=== PATIENT | male | born 1945 | race Caucasian/White ===

== ENCOUNTER 2020-04-23 07:37 | Outpatient (CLI) | payer MEDICARE, SELFPAY ==
--- NOTE | 2020-04-23 07:56 | ECHO_ITS ---
Patient Info Name: Chepe Mark Age: 74 years : 1945 Gender: Male Ht: 72 in Wt: 227 lbs BSA: 2.31 m2 HR: 55 bpm BP: 212 / 89 mmHg Technical Quality: Good Exam Date: 04/23/2020 8:11 AM Exam Location: [facility] Patient Status: Outpatient Admit Date: 04/23/2020 Staff Ordering Physician: Lucien Perez DO Tape Transferrer: Kenny Calle RDCS, RT Attending Provider: Lucien Perez DO Referring Physician: Ana KENNEDY; Exam Type: CA echo doppler color flow Study Info Indications I10 - Essential (primary) hypertension Complete two-dimensional, color flow and Doppler transthoracic echocardiogram is performed. Summary 1. Left ventricular chamber dimension is normal. 2. Left ventricular systolic function is normal, estimated at 60-65%. 3. There is moderately increased left ventricular wall thickness. 4. The left ventricular diastolic function is abnormal. 5. E/e' 15 is elevated. 6. Global longitudinal strain is normal at -17.4%. 7. Left atrial chamber dimension is mildly enlarged. 8. There is moderate aortic valve sclerosis. 9. The mitral valve has severely calcified leaflets and mildly calcified annulus. 10. There is mild mitral valve regurgitation. 11. There is trace tricuspid valve regurgitation. 12. There is trace pulmonic regurgitation. 13. Dilated inferior vena cava with >50% collapse upon inspiration consistent with elevated right atrial pressure, 10 mmHg. Left Ventricle E/e' 15 is elevated. Global longitudinal strain is normal at -17.4%. Left ventricular chamber dimension is normal. Left ventricular systolic function is normal, estimated at 60-65%. There is moderately increased left ventricular wall thickness. The left ventricular diastolic function is abnormal. Right Ventricle Right ventricular chamber dimension is normal. Right ventricular systolic function is normal. Left Atria Left atrial chamber dimension is mildly enlarged. Right Atria Right atrial chamber dimension is normal. Aortic Valve The aortic valve is trileaflet. There is moderate aortic valve sclerosis. There is no aortic valve stenosis. There is no aortic valve regurgitation. Pulmonic Valve There is trace pulmonic regurgitation. Mitral Valve The mitral valve has severely calcified leaflets and mildly calcified annulus. There is no mitral valve stenosis. There is mild mitral valve regurgitation. Tricuspid Valve RVSP is not calculated due to an inadequate TR jet. There is trace tricuspid valve regurgitation. Pericardium/Pleural There is no pericardial effusion. Inferior Vena Cava Dilated inferior vena cava with >50% collapse upon inspiration consistent with elevated right atrial pressure, 10 mmHg. Aorta The aortic root size at the sinus of Valsalva is normal. Left Ventricular Outflow Tract Name Value Normal LVOT 2D LVOT Diameter 2.1 cm LVOT Doppler LVOT Peak Gradient 4 mmHg LVOT Mean Gradient 2 mmHg LVOT VTI 28 cm LVOT VTI/AV VTI Ratio 0.6
== END 2020-04-23 07:38 | disposition home or self-care (01) ==
LOC: ANHCARD 07:39
PROVIDERS: PCP Internal Medicine; Visit Provider Internal Medicine
DX: I10 Essential (primary) hypertension (principal); I35.8 Other nonrheumatic aortic valve disorders; I34.0 Nonrheumatic mitral (valve) insufficiency
CPT/HCPCS: 93306

== ENCOUNTER 2020-05-28 12:00 | Outpatient (CLI) | payer MEDICARE, SELFPAY ==
--- NOTE | ~2020-05-28 | XR_ITS ---
EXAMINATION: XR chest 2V EXAM DATE: 05/28/2020 12:11 INDICATION: Dyspnea. TECHNIQUE: Frontal and lateral projections of the chest obtained and reviewed. There is no prior lucero dy for comparison. FINDINGS: The lungs are clear. There are no pleural effusions. The cardiomediastinal silhouette is upper limits of normal in size. There is no pneumothorax suspected. The bones and soft tissues are unremarkable. IMPRESSION: No acute cardiopulmonary findings. Reviewed, dictated and finalized at location A.
--- NOTE | 2020-06-02 23:34 | WPDPFTINT ---
PFT Interpretation PFT Interpretation: DOS: 05/28/2020 REQUESTING: Dr. Perez REASON FOR TESTING: Dyspnea PULMONARY FUNCTION TESTS Results are reproducible. Spirometry: FEV1 101%, FVC 81%, FEV1% normal, no change with bronchodilator. Lung volumes: TLC 92%, RV 89%, Both are normal. Airway resistance increased 206%. Diffusion: DLCO 87%, normal. Flow volume loop: Normal. IMPRESSION: Normal study with mild increase in airway resistance. Shasha Rivera MD
== END 2020-05-28 12:01 | disposition home or self-care (01) ==
PROVIDERS: PCP Internal Medicine; Visit Provider Internal Medicine
DX: R06.00 Dyspnea, unspecified (principal)
CPT/HCPCS: 71046; 94060; 94726; 94729

== ENCOUNTER 2020-10-05 00:34 | Outpatient (CLI) | payer MEDICARE, SELFPAY ==
[2020-10-05 19:14] LABS: SARS-CoV-2 RNA PCR Positive
== END 2020-10-05 00:35 | disposition home or self-care (01) ==
LOC: ANHCOVIDDT 00:34
PROVIDERS: PCP Internal Medicine; Visit Provider Internal Medicine Gastroenterology
DX: U07.1 COVID-19 (principal)
CPT/HCPCS: 87635; C9803; U0003

== ENCOUNTER 2021-01-08 01:54 | Day surgery (SDC) | payer MEDICARE, SELFPAY ==
[2020-09-30 14:49] VITALS: BMI 29.9
--- NOTE | 2020-10-07 09:00 | SUR.PREOP ---
0900 contacted patient vis phone gave patient his Covid test results which were positive. Referred patient to call his primary care doctor and to follow up with his [facility] for further instructions. Patient denies and signs or symptoms of Covid. Instructed patine to reach out to Dr. Sosa's office for re-scheduling of procedure. Patient voiced understanding.
[2020-12-09 13:41] VITALS: BMI 29.9
--- NOTE | 2020-12-09 13:58 | PC.NURSE ---
Pt. COVID + 10/05/2020, results in [facility] and copy on chart. Pt. was asymptomatic. Fabiana Phillips RN 12/09/20 [phone]
--- NOTE | 2020-12-31 08:13 | PC.NURSE ---
Patient denies any changes in health history since last interview. Updated on times and new visitor policies.
[2021-01-08] MEDS: LACTATED RINGERS 1,000 ML 150 ML IV CONT (08:30)
[2021-01-08 08:33] VITALS: BP 207/77; PULSE 60; RESP 14; TEMP 36.7; O2SAT 97; BMI 30.2
[2021-01-08 08:38] LABS: Glucose Point of Care 123 (65-105)
--- NOTE | 2021-01-08 08:38 | SUR.PHASEII ---
Pt blood pressure elevated 207/77. Re-check 218/75. Dr. Knight anesthesiologist made aware. No new orders at this time.
[2021-01-08 08:39] VITALS: BP 218/75
--- NOTE | 2021-01-08 08:51 | PM.HPGS ---
History of Present Illness History of Present Illness Consent: Risks, benefits, and alternatives have been discussed and questions answered. Patient agrees to proceed with procedure. Chief complaint: hx of colon polyps Narrative: Chepe Mark is a 75 year old male referred for colon cancer screening. He had polyps removed about 6 years ago Review of Systems Review of Systems: All systems reviewed & are unremarkable except as noted in HPI and below PMFSH Past Medical History Medical History H/O: HTN (hypertension) Family History Family History Father Family history of Alzheimer's disease Other Cerebrovascular accident Family history of arthritis Hypertension Social History Social History Smoking status: Never smoker Second hand tobacco smoke exposure: No Alcohol intake: current Drinks per week: 2 Alcohol use details: rarely Substance use: never Substance use type: does not use Living arrangements: with family Gender identity (if verbalized by the patient): Male Spiritual care concerns: No Meds Home Medications and Allergies Home Medications Medication Instructions Recorded Confirmed Type terazosin 2 mg capsule 2 mg PO DAILY #90 cap 07/09/20 11/11/20 Rx carvedilol 25 mg tablet 25 mg PO Q12H #180 tablet 07/19/20 11/11/20 Rx blood-glucose meter #1 ea 09/12/20 11/11/20 Rx glipizide 5 mg tablet 5 mg PO DAILY 30 Days #30 tablet 09/12/20 11/11/20 Rx lancets 33 gauge #100 ea 09/12/20 11/11/20 Rx metformin 500 mg tablet 500 mg PO DAILY 30 Days #30 tablet 09/12/20 11/11/20 Rx valsartan 320 1 tablet PO DAILY #90 tablet 12/09/20 12/09/20 Rx mg-hydrochlorothiazide 25 mg tablet blood sugar diagnostic #200 ea 12/10/20 Rx lisinopril 40 mg tablet 40 mg PO DAILY #90 tablet 12/13/20 12/31/20 Rx simvastatin 40 mg tablet 40 mg PO DAILY #90 tablet 12/16/20 12/31/20 Rx Allergies Allergy/AdvReac Type Severity Reaction Status Date / Time No Known Allergies Allergy Mild Verified 01/08/21 08:08 Vital Signs Vital Signs - 24 hr 01/08/21 08:33 01/08/21 08:39 Temperature 36.7 C Pulse Rate 60 Respiratory Rate 14 Blood Pressure 207/77 H 218/75 H Pulse Oximetry 97 Exam Resp: Auscultation: clear to auscultation bilaterally Cardio: Rate: regular rate Rhythm: regular rhythm GI: GI Palp: Yes Soft to palpation and No Tenderness to palpation present (GI) Assessment and Plan Assessment and plan (1) Colon cancer screening: Code(s): Z12.11 - Encounter for screening for malignant neoplasm of colon Status: Acute Assessment and Plan: Colonoscopy with possible biopsy or polypectomy or cautery or injection of substances.
--- NOTE | 2021-01-08 08:53 | WPDANESEPPF ---
Anes - Initial Pre Proc Eval Procedure: Operation Date: 01/08/21 09:30 Proposed Procedures p Screening Colonoscopy - Mateo Nesbitt MD Date/Time: 01/08/21 08:53 Surgeon: Mateo Nesbitt MD Pre Op Diagnosis: hx of colon polyps Patient Data Age: 75 Gender: M Height: 6 ft Weight: 101 kg Last Vital Signs Temp 98.1 F 01/08/21 08:33 Pulse 60 01/08/21 08:33 Resp 14 01/08/21 08:33 BP 218/75 H 01/08/21 08:39 Pulse Ox 97 01/08/21 08:33 Allergies Allergy/AdvReac Type Severity Reaction Status Date / Time No Known Allergies Allergy Mild Verified 01/08/21 08:08 Home Medications Medication Instructions Recorded Confirmed Type terazosin 2 mg capsule 2 mg PO DAILY #90 cap 07/09/20 11/11/20 Rx carvedilol 25 mg tablet 25 mg PO Q12H #180 tablet 07/19/20 11/11/20 Rx blood-glucose meter #1 ea 09/12/20 11/11/20 Rx glipizide 5 mg tablet 5 mg PO DAILY 30 Days #30 tablet 09/12/20 11/11/20 Rx lancets 33 gauge #100 ea 09/12/20 11/11/20 Rx metformin 500 mg tablet 500 mg PO DAILY 30 Days #30 tablet 09/12/20 11/11/20 Rx valsartan 320 1 tablet PO DAILY #90 tablet 12/09/20 12/09/20 Rx mg-hydrochlorothiazide 25 mg tablet blood sugar diagnostic #200 ea 12/10/20 Rx lisinopril 40 mg tablet 40 mg PO DAILY #90 tablet 12/13/20 12/31/20 Rx simvastatin 40 mg tablet 40 mg PO DAILY #90 tablet 12/16/20 12/31/20 Rx Laboratory Tests 01/08/21 08:25 POC Capillary Glucose 123 mg/dl H mg/dl (65-105) Patient hx anesthesia problems: none Family hx anesthesia problems: none PMFSH Past Medical History Medical History (Updated 01/08/21 @ 08:53 by Fausto Knight MD) Essential (primary) hypertension H/O: HTN (hypertension) Pure hypercholesterolemia Uncontrolled type 2 diabetes mellitus Family History Family History Father Family history of Alzheimer's disease Other Cerebrovascular accident Family history of arthritis Hypertension Social History Social History Smoking status: Never smoker Second hand tobacco smoke exposure: No Alcohol intake: current Drinks per week: 2 Alcohol use details: rarely Substance use: never Substance use type: does not use Living arrangements: with family Gender identity (if verbalized by the patient): Male Spiritual care concerns: No Anes - Eval Final PreProcedure Day of Procedure 01/08/21 08:53 Patient weight: obese Heart: regular rate and rhythm Lungs: clear to auscultation Airway: Mallampati scale class III Neurological: alert and oriented Last oral intake: >/= 8 hours ASA classification: III Emergent: no Anesthetic plan: proceed Anesthesia type and monitoring: general GIVS and standard monitoring Informed Consent: The patient's anesthetic plan and its attendant risks and benefits were discussed with the patient/family/POA. Questions were solicited and answers provided to the satisfaction of the patient/family/POA.
[2021-01-08 09:42] VITALS: BP 151/73; PULSE 50; RESP 16; O2SAT 98
[2021-01-08 09:52] VITALS: BP 176/100; PULSE 49; RESP 18; O2SAT 97
[2021-01-08 10:02] VITALS: BP 177/88; PULSE 49; RESP 20; O2SAT 98
== END 2021-01-08 10:21 | disposition home or self-care (01) ==
PROVIDERS: PCP Internal Medicine; Visit Provider Internal Medicine Gastroenterology
PROC: 0DJD8ZZ Inspection of Lower Intestinal Tract, Via Natural or Artificial Opening Endoscopic (ICD-10-PCS; CPT 45378; principal; 2021-01-08 09:30)
DX: Z12.11 Encounter for screening for malignant neoplasm of colon (principal); K63.5 Polyp of colon; I10 Essential (primary) hypertension; E78.00 Pure hypercholesterolemia, unspecified; E11.9 Type 2 diabetes mellitus without complications; Z79.84 Long term (current) use of oral hypoglycemic drugs; E66.9 Obesity, unspecified; Z68.30 Body mass index [BMI] 30.0-30.9, adult
CPT/HCPCS: 45380; 82948; 88305; J2001; J2704; J7120

== ENCOUNTER 2021-01-23 13:00 | Outpatient (RCR) | payer MEDICARE, SELFPAY ==
[2020-11-19 11:06] VITALS: BMI 30.9
[2020-11-19 11:07] VITALS: BMI 30.9
== END 2021-01-24 11:32 | disposition home or self-care (01) ==
LOC: ANHDMC 13:00
PROVIDERS: PCP Internal Medicine; Visit Provider Internal Medicine Endocrinology, Diabetes & Metabolism
DX: E11.65 Type 2 diabetes mellitus with hyperglycemia (principal); Z71.3 Dietary counseling and surveillance; Z71.89 Other specified counseling
CPT/HCPCS: 97802; G0108

== ENCOUNTER 2022-08-10 02:38 | Outpatient (CLI) | payer MEDICARE, SELFPAY ==
[2022-07-31 13:01] VITALS: BMI 29.9
--- NOTE | 2022-07-31 13:02 | PC.NURSE ---
Pre Radiology instructions Report to the Outpatient Waiting Room, entrance under the green pavilion located off [facility], at time __7:30AM on date ___08/10/22____. Procedure Time: __9:30AM . YOU MAY BE MONITORED AT HOSPITAL FOR UP TO 4 HOURS AFTER YOUR PROCEDURE. One visitor will be allowed to accompany the patient into the hospital. The visitor will be instructed to remain with patient at all times or leave the building due to restrictions. We will allow the visitor to come back to the postoperative area when patient is ready. NO children visitors allowed at this time. You and your visitor will be asked to self-screen and do not enter if you have any COVID symptoms. A mask is required within the hospital. Patients are to have no food or drink 6 hours prior to procedure time Driving will be restricted after the procedure, you must have a person to drive you home. Labs will be drawn in preop area and once reviewed, you will be taken to radiology area for procedure. When the procedure is completed, you will be taken to outpatient where you will be monitored for several hours. You may have one visitor in this area. Other than holding anti-coagulants, patient may take other medication(s) as scheduled. Prior to your appointment date patients are instructed to hold anti-coagulants after discussing with ordering provider to stop. If unable to discontinue anti-coagulants please notify radiologist. No aspirin or warfarin (Coumadin) for 7 days prior to the procedure. No clopidogrel (Plavix), ticagrelor (Brilinta), prasugrel (Effient) or dabigatran (Pradaxa) for 5 days prior to the procedure. No rivaroxaban (Xarelto), apixaban (Eliquis), dipyridamole (Aggrenox or Persantine) or cilostazol (Pletal) for 2 days prior to the procedure. Medications to discontinue per physician: HOLD METFORMIN AM OF PROCEDURE Date to take last dose: ____08/09/22 Please leave all valuables, including medications, at home the day of procedure. The hospital will not accept responsibility for valuables. Wear comfortable, loose fitting clothing. Follow any additional instructions given to you from ordering provider. Telephone instructions given to _PATIENT and asked if any additional questions and then verbalized understanding. Patient advised to call scheduling provider office or registration scheduling [phone] if any additional questions.
[2022-08-10 07:25] VITALS: BP 166/76; PULSE 56; RESP 16; TEMP 36.4; O2SAT 98; BMI 29.1
[2022-08-10] MEDS: SODIUM CHLORIDE 0.9% IV 1,000 ML 30 ML IV CONT (07:55)
[2022-08-10 08:07] LABS: Mean Platelet Volume 11.9 fl (7.4-10.4); Platelet Count Result 227 k/mm3 (150-375)
[2022-08-10 08:09] LABS: Glucose Point of Care 202 mg/dl (65-105)
[2022-08-10 08:29] LABS: INR 0.9; Prothrombin Time 12.2 Seconds (11.1-14.7)
--- NOTE | 2022-08-10 09:25 | SUR.PREOP ---
0907- Call to ultrasound and spoke with staff notifying patient is ready in pre-op for procedure with labs resulted normal.
--- NOTE | 2022-08-10 09:45 | SUR.PREOP ---
0945- Notified patient of delay to procedure start time- patient verbalized understanding.
--- NOTE | 2022-08-10 10:22 | SUR.PHASEII ---
1015 - procedure cancelled. iv discontinued. family called for pt pickup.
== END 2022-08-10 10:33 | disposition home or self-care (01) ==
PROVIDERS: PCP Internal Medicine; Referring Provider Internal Medicine Nephrology; Visit Provider Radiology Diagnostic Radiology
PROC: (CPT 76942; principal; 2022-08-10 09:30)
DX: R80.8 Other proteinuria (principal)
CPT/HCPCS: 36415; 82948; 85049; 85610; J7030

== ENCOUNTER 2022-10-08 07:42 | Outpatient (CLI) | payer MEDICARE, SELFPAY ==
--- NOTE | ~2022-10-08 | CT_ITS ---
EXAMINATION: CTA abdomen DATE: 10/08/2022 18:49 CARPENTRY FOREMAN INDICATION: Hypertension TECHNIQUE: Computed tomographic angiography (CTA) of the abdomen was performed without and with 100 m L Omnipaque-350 intravenous contrast. The dose-length product was 1093.69 mGy-cm. Maximum intensity p rojection 3D-reconstructions of the aorta and other arteries were constructed by the technologist on a separate workstation. Automated exposure control and iterative reconstruction technique were employ ed. COMPARISON: None. FINDINGS: Small pleural effusions, right greater than left. There is dependent atelectasis. There is an 8 mm right lower lobe nodule. There is a 1 cm right renal cyst. There are additional subcentimeter hypodense lesions of the right kidney, too small to characterize. There is a 3 cm right adrenal myel olipoma. Fatty infiltration of the liver. There are calcified granulomas of the liver and spleen. The pancreas, left adrenal gland and left kidney are unremarkable. No evidence for aortic aneurysm or dissection. The celiac axis, SMA and KRISH are patent. There is mild atherosclerosis of the origin of the renal arteries without significant narrowing. There is a right extrarenal pelvis. No free air or free fluid. Nonobstructive bowel pattern. No lymphadenopathy. IMPRESSION: 1. Small pleural effusions. 2: Right lower lobe nodule measuring 8 mm. Recommend follow-up low dose CT chest in 3 months. 3: Right adrenal myelolipoma measuring 3 cm. 4: Hepatic steatosis. Reviewed, dictated and finalized at location A. ENTRY FOREMAN IMPRESSION: 1. Small pleural effusions. 2: Right lower lobe nodule measuring 8 mm. Recommend follow-up low dose CT ches t in 3 months. 3: Right adrenal myelolipoma measuring 3 cm. 4: Hepatic steatosis.
[2022-10-08 08:24] LABS: Estimated Glomerular Filt Rate 59
== END 2022-10-08 07:43 | disposition home or self-care (01) ==
PROVIDERS: PCP Internal Medicine; Visit Provider Internal Medicine Nephrology
DX: I10 Essential (primary) hypertension (principal); E78.5 Hyperlipidemia, unspecified; R94.4 Abnormal results of kidney function studies; J90 Pleural effusion, not elsewhere classified; R91.1 Solitary pulmonary nodule; D17.5 Benign lipomatous neoplasm of intra-abdominal organs; K76.0 Fatty (change of) liver, not elsewhere classified
CPT/HCPCS: 74175; Q9967

== ENCOUNTER 2022-12-04 07:41 | Inpatient (IN) | payer MEDICARE, SELFPAY ==
[2022-12-04] VITALS (31 sets, daily range): BP systolic 160–205; BP diastolic 58–84; PULSE 56–74; RESP 12–21; TEMP 36.2–36.5; O2SAT 90–98; BMI 31.1
--- NOTE | ~2022-12-04 | US_ITS ---
EXAMINATION: US venous doppler [facility] DATE: 12/04/2022 15:23 INDICATION: Shortness of breath. Lower limb swelling. TECHNIQUE: Grayscale ultrasound images without and with compression and Doppler ultrasound images of the bilateral lower extremity veins were obtained. COMPARISON: None. FINDINGS: The visualized portions of right common femoral vein, profunda (deep) femoral vein, femoral vein, pop liteal vein, posterior tibial veins, peroneal veins, gastrocnemius vein and greater saphenous vein ou tflow are patent. The visualized portions of left common femoral vein, profunda femoral vein, femoral vein, popliteal v ein, posterior tibial veins, peroneal veins, gastrocnemius vein and greater saphenous vein outflow ar e patent. IMPRESSION: 1. No deep venous thrombosis in either lower limb. Reviewed, dictated and finalized at location A. OR ANALYSIS SPECIALIST
--- NOTE | ~2022-12-04 | XR_ITS ---
EXAMINATION: XR chest 2V DATE: 12/04/2022 11:11 INDICATION: Shortness of breath TECHNIQUE: PA and lateral views of the chest are obtained. COMPARISON: 05/28/2020 FINDINGS: There are small pleural effusions. There are minimal airspace opacities of the lung bases. No pneumothorax is identified. The cardiomediastinal silhouette is normal. There is mild thoracic spo ndylosis. IMPRESSION: 1. Small pleural effusions with minimal bibasilar airspace opacities, consistent with atelectasis jose e matilda pneumonia. Reviewed, dictated and finalized at location B. AL GIVING MANAGER IMPRESSION: 1. Small pleural effusions with minimal bibasilar airspace opacities, consisten t with atelectasis versus pneumonia.
--- NOTE | ~2022-12-04 | XR_ITS ---
Clinical Indication: Pneumonia PA and lateral views of the chest: Comparison: 12/04/2022 Findings: The lungs are clear, without evidence of focal consolidation or pleural effusion. Cardiome diastinal silhouette is within normal limits. Bones and soft tissues are unremarkable. Impression: Normal chest. Reviewed, dictated and finalized at [facility]. PAINTER HELPER Impression: Normal chest.
--- NOTE | 2022-12-04 09:20 | ECG_ITS ---
Measurements Intervals [place] Rate: 59 P: -10 KS: 233 QRS: 29 QRSD: 98 T: 56 QT: 430 QTc: 428 Interpretive Statements SINUS BRADYCARDIA WITH FIRST DEGREE AV BLOCK BORDERLINE ECG NO PREVIOUS ECG AVAILABLE FOR COMPARISON Electronically Signed On 12-04-2022 14:59:16 [employer]NER by Durga Fernandes M.D.
--- NOTE | 2022-12-04 09:27 | ED.SOB ---
HPI - SOB/Dyspnea General Chief Complaint: Upper Respiratory Infection Stated Complaint: sob, cough Time Seen by Provider: 12/04/22 09:01 History of Present Illness HPI Narrative: 77-year-old male with a history of type 2 diabetes, hypertension, hypercholesterolemia reports for shortness of breath x2 days. Patient reports mild cough, inability to take a full deep breath. States his symptoms are worse when he lays flat, particularly at night. Patient was started on amlodipine a couple weeks ago per patient, which has since helped his blood pressure, but he states he noticed swelling in his bilateral lower extremities when he initiated the medication. Patient states he had pneumonia years ago and this is how he felt. He denies fever, sore throat, nasal congestion, chills, night sweats. Denies COPD, heart disease, asthma. Of note, patient states he did not take his valsartan/hydrochlorothiazide and carvedilol this morning, only his amlodipine. He does not wear O2 at home. Related Data Allergies Allergy/AdvReac Type Severity Reaction Status Date / Time No Known Allergies Allergy Mild Verified 11/11/22 08:57 Review of Systems Review of Systems: CONSTITUTIONAL: Denies fever, chills EYES: Denies visual changes, redness, or discharge. ENT: Denies rhinorrhea, congestion, sore throat, or otalgia. CARDIOVASCULAR: Denies chest pain, palpitations. Reports lower leg edema bilaterally. RESPIRATORY: Reports cough and dyspnea. GASTROINTESTINAL: Denies abdominal pain, nausea, vomiting, or diarrhea. GENITOURINARY: Denies dysuria or hematuria. SKIN: Denies rash or itching. MUSCULOSKELETAL: Denies back pain, joint pain, or myalgia. NEUROLOGIC: Denies headache, numbness, dizziness, or weakness. PSYCHIATRIC: Denies anxiety or depression. [facility] Past Medical History Medical History (Updated 12/04/22 @ 14:30 by Becky Feliciano PA-C) Essential (primary) hypertension Hyperlipidemia Monoclonal gammopathy of undetermined significance Followed by specialist at [facility]. Primary osteoarthritis of left knee Type 2 diabetes mellitus Surgical History Surgical History No pertinent past surgical history Family History Family History Father Family history of Alzheimer's disease Other Cerebrovascular accident Family history of arthritis Hypertension Social History Social History (Updated 12/04/22 @ 14:20 by Becky Feliciano PA-C) Social History: Surrogate medical decision maker: Hansa Mark, spouse. Code status: Full code. Smoking status: Never smoker Second hand tobacco smoke exposure: No Alcohol intake: current Drinks per week: 2 Alcohol use details: Social alcohol use in moderation. Substance use: never Lack of Transportation: No Lack of Food: Never True Current Housing: I Have Housing Concerned About Future Housing: No Difficulty Paying Gas/Electric Bills: No Difficulty Paying for Meds: No Currently Unemployed: No Education: Trade/Vocational Certificate Difficulty w/ Childcare or Family Care: No Additional living arrangements comments: Lives with spouse in [place]. 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 Spiritual care concerns: No Exam Narrative: GENERAL: Well-appearing, well-nourished, and in no acute distress. HEAD: Normocephalic, atraumatic. EYES: PERRLA and EOMI. ENT: Nares clear, no rhinorrhea or epistaxis. Mucous membranes moist. Oropharynx without tonsillar hypertrophy exudate or other lesions. Bilateral TMs pearly curry nonbulging NECK: Supple. No adenopathy or masses. CHEST: Clear to auscultation. No respiratory distress. No wheezes rales or rhonchi. Diminished breath sounds throughout. HEART: Regular rate and rhythm. No murmur heard. Normal peripheral pulses. ABDOMEN: Soft, nontender, normal active bowel so
[2022-12-04 09:43] LABS: Basophils Percent Auto 0.4 % (0.2-1.2); Eosinophils Absolute Auto 0.1 K/mm3 (0-0.3); Eosinophils Percent Auto 1.3 % (0-4.4); Hematocrit 37.9 % (42.0-52.0); Hemoglobin 12.7 g/dL (14.0-18.0); Immature Granulocyte Absolute 0.02 K/mm3 (0.00-0.031); Immature Granulocyte Percent A 0.3 % (0-0.5); Lymphocytes Absolute Auto 1.59 K/mm3 (0.9-3.2); Lymphocytes Percent Auto 21.4 % (18.3-44.2); Mean Corpuscular HGB Conc 33.5 g/dl (32-36); Mean Corpuscular Hemoglobin 31.8 pg (26-34); Mean Corpuscular Volume 94.8 fl (80-100); Mean Platelet Volume 10.4 fl (7.4-10.4); Monocytes Absolute Auto 0.5 K/mm3 (0.1-0.6); Neutrophils Absolute Auto 5.2 K/mm3 (1.3-6.7); Neutrophils Percent Auto 69.6 % (45.5-73.1); Platelet Count Result 225 k/mm3 (150-375); Red Cell Distribution Width 12.5 % (11.5-14.5); White Blood Count 7.4 K/mm3 (4.5-10.0)
[2022-12-04] MEDS: ALBUTEROL SULFATE NEB 2.5 MG/3 ML INH INHALATION (09:50)
[2022-12-04] MEDS: IPRATROPIUM BR 0.02% INH SOLN 0.5 MG/2.5 ML VIAL INHALATION (09:50)
[2022-12-04 09:51] LABS: Appearance Urine Clear (Clear); Bilirubin Urine Negative (Negative); Blood Urine Negative (Negative); Color Urine Yellow (Yellow); Glucose Urine UA Negative (Negative); Ketones Urine Trace mg/dL (Negative); Leukocyte Esterase Ur Negative LEU/UL (Negative); Nitrate Urine Negative (Negative); Protein Urine 2+ mg/dL (Negative); Urobilinogen Urine 0.2 mg/dL (<2.0); pH Urine 5.5 (5.0-9.0)
[2022-12-04 09:55] LABS: Alanine Aminotransferase 21 U/L (6-50); Albumin Level 4.7 g/dL (3.5-5.1); Alkaline Phosphatase 66 U/L (38-126); Anion Gap 6 mmol/L (8-16); Aspartate Amino Transferase 19 U/L (17-59); Bilirubin,Total 0.8 mg/dL (0.2-1.3); Blood Urea Nitrogen 20 mg/dL (9-20); Calcium 8.8 mg/dL (8.4-10.2); Carbon Dioxide 26 mmol/L (22-30); Chloride 95 mmol/L (98-107); Estimated CRCL calculation 69 ml/min; Estimated Glomerular Filt Rate > 60; Glucose 151 mg/dL (65-110); Magnesium 2.1 mg/dL (1.6-2.3); Potassium 4.1 mmol/L (3.4-5.0); Sodium 127 mmol/L (137-145)
[2022-12-04 10:06] LABS: RBC Urine 0-2 /hpf (0-2); WBC Urine 0-3 /hpf
[2022-12-04 10:07] LABS: NT Pro B Type Natriuretic Pept 1170 pg/mL (19.9-100); Troponin I < 0.012 ng/mL (0.000-0.034)
[2022-12-04 10:18] LABS: Influenza A QL RT-PCR Negative (Negative); Influenza B QL RT-PCR Negative (Negative); SARS-CoV-2 RNA PCR Negative
[2022-12-04 10:24] LABS: Add Urine Microscopic? YES
--- NOTE | 2022-12-04 14:00 | PM.IMHP ---
H&P: HPI History of Present Illness Date/Time: 12/04/22 14:00 Chief Complaint: Shortness of breath. Narrative: This is a pleasant 77-year-old male with hypertension, hyperlipidemia, type 2 diabetes mellitus, and monoclonal gammopathy of undetermined significance who presented to the emergency department from home for evaluation of shortness of breath. Patient provides the following history. Over the last couple of days he has felt as though he cannot get in a deep breath and last night he slept poorly due to feelings of shortness of breath, most notably while supine. The 2nd half of the night he slept in his recliner and seemed less short of breath with that. With further questioning he does note the development of lower extremity edema up to the knees which started within the last month or so following a change in his blood pressure medications, now on amlodipine instead of nifedipine. He denies fever, chills, sweats, headache, sinus congestion, sore throat, cough, nausea, vomiting, and diarrhea. He also denies chest pain/discomfort, pleuritic pain, sensations of racing heart, palpitations, and calf pain. No recent travel. No history of venous thromboembolism, coronary artery disease, or congestive heart failure. He was afebrile on arrival. Pertinent labs include a WBC of 7.4, sodium 127, chloride 95, creatinine 1.00, glucose 151, proBNP 1170. He was negative for influenza and COVID. Chest x-ray shows small pleural effusions with minimal bibasilar airspace opacities consistent with atelectasis versus pneumonia. Ambulatory pulse ox monitoring was ordered in the ED and he reportedly was hypoxic in the upper 70s and he is being admitted in this setting. Review of Systems Review of Systems: Twelve systems were reviewed and are negative except for as per HPI. [facility] Past Medical History Medical History (Updated 12/04/22 @ 14:30 by Becky Feliciano PA-C) Essential (primary) hypertension Hyperlipidemia Monoclonal gammopathy of undetermined significance Followed by specialist at [facility]. Primary osteoarthritis of left knee Type 2 diabetes mellitus Surgical History Surgical History No pertinent past surgical history Family History Family History Father Family history of Alzheimer's disease Other Cerebrovascular accident Family history of arthritis Hypertension Social History Social History (Updated 12/04/22 @ 14:20 by Becky Feliciano PA-C) Social History: Surrogate medical decision maker: Hansa Mark, spouse. Code status: Full code. Smoking status: Never smoker Second hand tobacco smoke exposure: No Alcohol intake: current Drinks per week: 2 Alcohol use details: Social alcohol use in moderation. Substance use: never Lack of Transportation: No Lack of Food: Never True Current Housing: I Have Housing Concerned About Future Housing: No Difficulty Paying Gas/Electric Bills: No Difficulty Paying for Meds: No Currently Unemployed: No Education: Trade/Vocational Certificate Difficulty w/ Childcare or Family Care: No Additional living arrangements comments: Lives with spouse in [place]. 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 Spiritual care concerns: No Meds Home Medications and Allergies Home Medications Medication Instructions Recorded Confirmed Type blood-glucose meter #1 ea 09/12/20 11/11/22 Rx blood sugar diagnostic (Blood #300 ea 10/23/21 11/11/22 Rx Glucose Test strips) lancets 33 gauge (BD Ultra Fine #300 ea 10/23/21 11/11/22 Rx Lancets) carvedilol 25 mg tablet (Coreg) 25 mg PO Q12H #180 tabs 04/26/22 11/11/22 Rx terazosin 2 mg capsule 2 mg PO DAILY #90 caps 06/28/22 11/11/22 Rx metformin 500 mg tablet 500 mg PO BID 90 days #180 tabs 10/18/22 11/11/22 Rx amlodipine 10 mg tablet 10 mg PO DAILY #90
[2022-12-04 14:03] LABS: Troponin I < 0.012 ng/mL (0.000-0.034)
--- NOTE | 2022-12-04 14:11 | PC.NURSE ---
Patient taken to ultrasound at this time.
--- NOTE | 2022-12-04 14:33 | ECHO_ITS ---
Patient Info Name: Chepe Mark Age: 77 years : 1945 Gender: Male Ht: 72 in Wt: 229 lbs BSA: 2.32 m2 HR: 78 bpm BP: 169 / 78 mmHg Heart Rhythm: Sinus Rhythm Technical Quality: Fair Exam Date: 12/04/2022 3:15 PM Exam Location: [facility] Pulmonary Exam Room: [facility] ED 4 Patient Status: Inpatient Admit Date: 12/04/2022 Staff Ordering Physician: Becky Feliciano PA-C Traffic Agent: Holly Davis RDCS Attending Provider: Carlos Claudio MD Referring Physician: Jodie AGGARWAL; Exam Type: CA echo doppler color flow Study Info Indications - EDEMA PLEURAL EFFUSION HTN Complete two-dimensional, color flow and Doppler transthoracic echocardiogram is performed. Summary 1. Complete two-dimensional, color flow and Doppler transthoracic echocardiogram is performed. 2. Left ventricular chamber dimension is normal. 3. Left ventricular systolic function is normal, estimated at 65-70%. 4. There is moderately increased left ventricular wall thickness. 5. The left ventricular diastolic function is grade II diastolic dysfunction. 6. Left atrial chamber dimension is mildly enlarged. 7. There is mild aortic valve regurgitation. 8. There is mild to moderate mitral valve regurgitation. 9. The mitral valve annulus is mildly calcified. 10. The mitral valve has thickened leaflets. 11. There is mild tricuspid valve regurgitation. 12. Severe pulmonary hypertension, estimated pulmonary arterial systolic pressure is 67 mmHg. 13. There is mild pulmonic regurgitation. Left Ventricle Left ventricular chamber dimension is normal. Left ventricular systolic function is normal, estimated at 65-70%. There is moderately increased left ventricular wall thickness. The left ventricular diastolic function is grade II diastolic dysfunction. Right Ventricle Right ventricular chamber dimension is normal. Right ventricular systolic function is normal. Left Atria Left atrial chamber dimension is mildly enlarged. Right Atria Right atrial chamber dimension is normal. Atrial Septum Intact interatrial septum visualized by color flow imaging. Aortic Valve The aortic valve is trileaflet. There is mild aortic valve sclerosis. There is no aortic valve stenosis. There is mild aortic valve regurgitation. Pulmonic Valve The pulmonic valve is normal. There is no pulmonic valve stenosis. There is mild pulmonic regurgitation. Mitral Valve The mitral valve has thickened leaflets. There is no mitral valve stenosis. There is mild to moderate mitral valve regurgitation. The mitral valve annulus is mildly calcified. Tricuspid Valve The tricuspid valve leaflets are normal. There is no significant tricuspid valve stenosis. There is mild tricuspid valve regurgitation. Severe pulmonary hypertension, estimated pulmonary arterial systolic pressure is 67 mmHg. Pericardium/Pleural The pericardium appears normal. There is trivial pericardial effusion. Inferior Vena Cava Normal inferior vena cava with >50% collapse upon inspiration consistent with elevated right atrial pressure, 10 mmHg. Aorta The aortic root size at the sinus of Valsalva is normal. There is mild aortic atherosclerosis. Left Ventricular Outflow Tract Name Value Normal LVOT 2D
[2022-12-04 15:55] LABS: Hemoglobin A1C 7.3 % (<5.7)
[2022-12-04] MEDS: FUROSEMIDE INJ 40 MG/4 ML VIAL IV PUSH (15:57)
[2022-12-04 16:54] LABS: Glucose Point of Care 157 mg/dl (65-105)
[2022-12-04 17:31] LABS: Troponin I < 0.012 ng/mL (0.000-0.034)
[2022-12-04] MEDS: FUROSEMIDE INJ 40 MG/4 ML VIAL 20 MG IV PUSH (17:52)
[2022-12-04 21:19] LABS: Glucose Point of Care 152 mg/dl (65-105)
[2022-12-04] MEDS: ACETAMINOPHEN 325 MG TABLET 650 MG PO (21:46)
[2022-12-04] MEDS: carvediloL 25 MG TABLET PO (21:46)
[2022-12-05] VITALS (17 sets, daily range): BP systolic 149–176; BP diastolic 61–77; PULSE 51–77; RESP 16–20; TEMP 36.4–36.8; O2SAT 97–100
[2022-12-05 04:30] LABS: Basophils Percent Auto 0.4 % (0.2-1.2); Eosinophils Absolute Auto 0.2 K/mm3 (0-0.3); Eosinophils Percent Auto 2.1 % (0-4.4); Hematocrit 38.5 % (42.0-52.0); Hemoglobin 12.8 g/dL (14.0-18.0); Immature Granulocyte Absolute 0.02 K/mm3 (0.00-0.031); Immature Granulocyte Percent A 0.3 % (0-0.5); Lymphocytes Absolute Auto 1.95 K/mm3 (0.9-3.2); Lymphocytes Percent Auto 27.5 % (18.3-44.2); Mean Corpuscular HGB Conc 33.2 g/dl (32-36); Mean Corpuscular Hemoglobin 31.5 pg (26-34); Mean Corpuscular Volume 94.8 fl (80-100); Mean Platelet Volume 10.4 fl (7.4-10.4); Monocytes Absolute Auto 0.9 K/mm3 (0.1-0.6); Neutrophils Percent Auto 56.7 % (45.5-73.1); Platelet Count Result 241 k/mm3 (150-375); Red Blood Count 4.06 M/mm3 (4.6-6.20); Red Cell Distribution Width 12.5 % (11.5-14.5); White Blood Count 7.1 K/mm3 (4.5-10.0)
[2022-12-05 04:45] LABS: Alanine Aminotransferase 19 U/L (6-50); Albumin Level 4.2 g/dL (3.5-5.1); Alkaline Phosphatase 59 U/L (38-126); Anion Gap 9 mmol/L (8-16); Aspartate Amino Transferase 18 U/L (17-59); Bilirubin,Total 0.7 mg/dL (0.2-1.3); Blood Urea Nitrogen 18 mg/dL (9-20); Calcium 8.9 mg/dL (8.4-10.2); Carbon Dioxide 28 mmol/L (22-30); Chloride 99 mmol/L (98-107); Estimated CRCL calculation 58 ml/min; Estimated Glomerular Filt Rate 59; Glucose 117 mg/dL (65-110); Magnesium 2.1 mg/dL (1.6-2.3); Potassium 3.7 mmol/L (3.4-5.0); Sodium 136 mmol/L (137-145)
[2022-12-05] MEDS: ENOXAPARIN 40 MG/0.4 ML SYRINGE SUB-Q (09:34)
[2022-12-05] MEDS: POTASSIUM CHLORIDE 20 MEQ TABLET.ER 40 MEQ PO (09:35)
[2022-12-05] MEDS: carvediloL 25 MG TABLET PO ×2 (09:36→20:26)
[2022-12-05] MEDS: hydroCHLOROthiazide 25 MG TABLET PO (09:36)
[2022-12-05] MEDS: TERAZOSIN HCL 1 MG CAPSULE 2 MG PO (09:36)
[2022-12-05] MEDS: VALSARTAN 160 MG TABLET 320 MG PO (09:37)
[2022-12-05] MEDS: FUROSEMIDE INJ 40 MG/4 ML VIAL 20 MG IV PUSH ×2 (09:37→17:40)
[2022-12-05] MEDS: SIMVASTATIN 20 MG TABLET 40 MG PO (09:38)
[2022-12-05] MEDS: amLODIPine BESYLATE 5 MG TABLET 10 MG PO (09:59)
[2022-12-05 10:12] LABS: Glucose Point of Care 170 mg/dl (65-105)
[2022-12-05 12:10] LABS: Glucose Point of Care 167 mg/dl (65-105)
--- NOTE | 2022-12-05 15:19 | PM.IMPN ---
Progress Note: A&P Assessment and Plan (1) Hypoxia: Code(s): R09.02 - Hypoxemia Status: Acute (2) Hyponatremia: Code(s): E87.1 - Hypo-osmolality and hyponatremia Status: Acute (3) Type 2 diabetes mellitus: Code(s): E11.9 - Type 2 diabetes mellitus without complications Status: Acute (4) Essential (primary) hypertension: Code(s): I10 - Essential (primary) hypertension Status: Acute (5) Hyperlipidemia: Code(s): E78.5 - Hyperlipidemia, unspecified Status: Acute (6) Monoclonal gammopathy of undetermined significance: Code(s): D47.2 - Monoclonal gammopathy Status: Acute Plan The patient presented to the ED from home for evaluation of shortness of breath the last couple of days as detailed in HPI. Labs, imaging, EKG, and all reports were personally reviewed. He was hypoxic with ambulation the ED and is being admitted in this setting for further workup. Chest x-ray shows small pleural effusions and minimal airspace opacities the lung bases which is likely atelectasis. Pneumonia seems unlikely by history; he is also afebrile with normal white blood cell count. History and workup are concerning for possible CHF with orthopnea, edema, and elevated proBNP. His sodium is lower than normal, likely due to mild volume overload. He does not appear dehydrated and again pneumonia seems unlikely. He will be judiciously diuresed with close monitoring of volume status, renal function, and electrolytes. Echocardiogram ordered. Pulmonary embolism is considered given lower extremity edema and shortness of breath though that seems less likely. Lower extremity venous Doppler ultrasounds have been ordered to rule out DVT. Edema may in fact be due to amlodipine which he was started on in the last couple of months. Blood pressures have been running in the 160 systolic and should improve with diuresis. Continue antihypertensives and monitor. Hold metformin while hospitalized. Initiate sliding scale insulin, Accu-Cheks, and hypoglycemic protocol. Check A1c. The rest of his home medications will be reviewed and resumed as appropriate. 12/05/2022 interval history: 77 year male presents with complaint of shortness of breath patient's symptoms however worse lying down patient has orthopnea to further evaluate patient had a cardiac echo patient has preserved LV function with ejection fraction 65% and grade 2 diastolic dysfunction most likely patient is having acute on chronic diastolic congestive heart failure patient is being diuresed, Lasix 20 mg IV b.i.d. patient states feeling much better compared to when he arrived not as short of breath, chest x-ray is concerning for pneumonia most likely community-acquired patient is being treated with ceftriaxone and azithromycin, will continue to monitor, patient's and his daughter present in the room Subjective Date/time seen: 12/05/22 15:19 Shortness of breath. HPI-Narrative: This is a pleasant 77-year-old male with hypertension, hyperlipidemia, type 2 diabetes mellitus, and monoclonal gammopathy of undetermined significance who presented to the emergency department from home for evaluation of shortness of breath. Patient provides the following history. Over the last couple of days he has felt as though he cannot get in a deep breath and last night he slept poorly due to feelings of shortness of breath, most notably while supine. The 2nd half of the night he slept in his recliner and seemed less short of breath with that. With further questioning he does note the development of lower extremity edema up to the knees which started within the last month or so following a change in his blood pressure medications, now on amlodipine instead of nifedipine. He denies fever, chills, sweats, headache, sinus congestion, sore throat, cough, nausea, vomiting, and diarrhea. He also denies chest pain/discomfort, pleuritic pain, sensations of racing heart, palpitations, and calf pain.
[2022-12-05 17:12] LABS: Glucose Point of Care 159 mg/dl (65-105)
[2022-12-05 20:04] LABS: Glucose Point of Care 133 mg/dl (65-105)
[2022-12-05] MEDS: ACETAMINOPHEN 325 MG TABLET 650 MG PO (20:26)
[2022-12-06] VITALS (15 sets, daily range): BP systolic 159–180; BP diastolic 60–76; PULSE 47–66; RESP 16–20; TEMP 36.3–37.2; O2SAT 94–99
[2022-12-06 05:24] LABS: Hematocrit 37.3 % (42.0-52.0); Hemoglobin 12.3 g/dL (14.0-18.0); Mean Corpuscular Hemoglobin 31.9 pg (26-34); Mean Corpuscular Volume 96.6 fl (80-100); Mean Platelet Volume 10.2 fl (7.4-10.4); Platelet Count Result 216 k/mm3 (150-375); Red Blood Count 3.86 M/mm3 (4.6-6.20); Red Cell Distribution Width 12.8 % (11.5-14.5); White Blood Count 6.7 K/mm3 (4.5-10.0)
[2022-12-06 05:33] LABS: Anion Gap 4 mmol/L (8-16); Blood Urea Nitrogen 20 mg/dL (9-20); Calcium 8.6 mg/dL (8.4-10.2); Carbon Dioxide 31 mmol/L (22-30); Chloride 97 mmol/L (98-107); Estimated CRCL calculation 64 ml/min; Estimated Glomerular Filt Rate > 60; Glucose 120 mg/dL (65-110); Potassium 3.4 mmol/L (3.4-5.0); Sodium 132 mmol/L (137-145)
[2022-12-06 08:16] LABS: Glucose Point of Care 126 mg/dl (65-105)
[2022-12-06] MEDS: FUROSEMIDE INJ 40 MG/4 ML VIAL 20 MG IV PUSH ×2 (08:38→17:24)
[2022-12-06] MEDS: ENOXAPARIN 40 MG/0.4 ML SYRINGE SUB-Q (08:39)
[2022-12-06] MEDS: amLODIPine BESYLATE 5 MG TABLET 10 MG PO (08:40)
[2022-12-06] MEDS: SIMVASTATIN 20 MG TABLET 40 MG PO (08:40)
[2022-12-06] MEDS: TERAZOSIN HCL 1 MG CAPSULE 2 MG PO (08:40)
[2022-12-06] MEDS: hydroCHLOROthiazide 25 MG TABLET PO (08:40)
[2022-12-06] MEDS: carvediloL 25 MG TABLET PO ×2 (08:41→20:11)
[2022-12-06] MEDS: VALSARTAN 160 MG TABLET 320 MG PO (08:41)
[2022-12-06] MEDS: POTASSIUM CHLORIDE 20 MEQ TABLET.ER 40 MEQ PO (08:48)
[2022-12-06] MEDS: POTASSIUM CHLORIDE 20 MEQ TABLET 40 MEQ PO (10:19)
--- NOTE | 2022-12-06 10:58 | PM.CNCAR ---
Assessment and Plan Assessment and plan (1) Hypertension associated with diabetes: Code(s): E11.59 - Type 2 diabetes mellitus with other circulatory complications; I15.2 - Hypertension secondary to endocrine disorders Status: Acute Assessment and Plan: Elevated here but at home his blood pressure seems to be fairly well controlled. Systolic blood pressure is between 125 and 145 at home assuming his BP cuff is functioning normally. Therefore will have him bring his own blood pressure cuff in with him at next visit office visit or his could potentially bring his cuff in with him while here in the hospital for comparison. For now, we will not make significant changes to his BP regimen. Will continue valsartan/hydrochlorothiazide, carvedilol and amlodipine at current dosing. Could add spironolactone which would be my next choice but I am a bit hesitant to do so given his severe pulmonary hypertension and its preload dependence. This is especially concerning given his history of syncope which is not yet explained and could be also related to pulmonary hypertension. (2) Hyperlipidemia associated with type 2 diabetes mellitus: Code(s): E11.69 - Type 2 diabetes mellitus with other specified complication; E78.5 - Hyperlipidemia, unspecified Status: Acute Assessment and Plan: Continue statin (3) Pulmonary hypertension: Code(s): I27.20 - Pulmonary hypertension, unspecified Status: Acute Assessment and Plan: Severe:? Etiology to this point. Possibilities include left heart disease. Does have diastolic dysfunction and left ventricular hypertrophy. Likely has some degree of left-sided involvement from longstanding hypertension, elevated LVEDP and resultant pulmonary hypertension. Cannot exclude other contributing factors however including sleep apnea, obesity, primary lung involvement etc.. May eventually need a right/left heart catheterization (4) History of syncope: Code(s): Z87.898 - Personal history of other specified conditions Status: Acute Assessment and Plan: Concerning history of syncope. Concerning for arrhythmogenic or even possibly related to pulmonary hypertension. Needs outpatient manager supply chain upon discharge. While in the hospital, continue inpatient telemetry (5) Hypokalemia: Code(s): E87.6 - Hypokalemia Status: Acute Assessment and Plan: Will replace with 40 mEq of potassium chloride p.o. x1 History of Present Illness History of Present Illness Consult date/time: 12/06/22 10:58 Requesting physician: Alivia,Tashi, MD Consult reason: hypertension Reason For Visit: Hypoxia Narrative: Reason for consultation: Uncontrolled hypertension Date of service 12/06/2022 Requesting provider: Dr. Bunch History patient is a 77-year-old male who has history of high blood pressure, hyperlipidemia, diabetes and MGUS. He has a history of white coat hypertension and consistently has elevated blood pressure whenever he sees doctors ago so the hospital. He states though at home his blood pressures usually run around 125-145 systolic. He came to the hospital because of some worsening shortness of breath, abdominal distention and lower extremity edema. States this started about 3 or 4 days prior to admission. He had an echocardiogram performed in the hospital which showed moderate left ventricular hypertrophy but with severe pulmonary hypertension. He denies a history of sleep apnea but his does state that he snores but no witnessed apnea. He denies any paroxysmal nocturnal dyspnea but was having some difficulty lying flat prior to admission. He has been diuresed and his lower extremity swelling and abdominal distention has improved. His blood pressure has remained quite elevated throughout the hospitalization and we are consulted for further assistance. Patient otherwise denies any palpitations, orthopnea, chest pain. No baseline short
[2022-12-06 12:10] LABS: Glucose Point of Care 192 mg/dl (65-105)
--- NOTE | 2022-12-06 13:57 | PM.IMPN ---
Progress Note: A&P Assessment and Plan (1) Hypoxia: Code(s): R09.02 - Hypoxemia Status: Acute (2) Hyponatremia: Code(s): E87.1 - Hypo-osmolality and hyponatremia Status: Acute (3) Type 2 diabetes mellitus: Code(s): E11.9 - Type 2 diabetes mellitus without complications Status: Acute (4) Essential (primary) hypertension: Code(s): I10 - Essential (primary) hypertension Status: Acute (5) Hyperlipidemia: Code(s): E78.5 - Hyperlipidemia, unspecified Status: Acute (6) Monoclonal gammopathy of undetermined significance: Code(s): D47.2 - Monoclonal gammopathy Status: Acute Plan The patient presented to the ED from home for evaluation of shortness of breath the last couple of days as detailed in HPI. Labs, imaging, EKG, and all reports were personally reviewed. He was hypoxic with ambulation the ED and is being admitted in this setting for further workup. Chest x-ray shows small pleural effusions and minimal airspace opacities the lung bases which is likely atelectasis. Pneumonia seems unlikely by history; he is also afebrile with normal white blood cell count. History and workup are concerning for possible CHF with orthopnea, edema, and elevated proBNP. His sodium is lower than normal, likely due to mild volume overload. He does not appear dehydrated and again pneumonia seems unlikely. He will be judiciously diuresed with close monitoring of volume status, renal function, and electrolytes. Echocardiogram ordered. Pulmonary embolism is considered given lower extremity edema and shortness of breath though that seems less likely. Lower extremity venous Doppler ultrasounds have been ordered to rule out DVT. Edema may in fact be due to amlodipine which he was started on in the last couple of months. Blood pressures have been running in the 160 systolic and should improve with diuresis. Continue antihypertensives and monitor. Hold metformin while hospitalized. Initiate sliding scale insulin, Accu-Cheks, and hypoglycemic protocol. Check A1c. The rest of his home medications will be reviewed and resumed as appropriate. 12/06/2022 interval history: 77 year male presents with complaint of shortness of breath patient's symptoms however worse lying down patient has orthopnea to further evaluate patient had a cardiac echo patient has preserved LV function with ejection fraction 65% and grade 2 diastolic dysfunction most likely patient is having acute on chronic diastolic congestive heart failure patient is being diuresed, Lasix 20 mg IV b.i.d. patient states feeling much better compared to when he arrived not as short of breath, chest x-ray is concerning for pneumonia most likely community-acquired patient is being treated with ceftriaxone and azithromycin, will continue to monitor, patient's is present in the room Subjective Date/time seen: 12/06/22 13:57 The patient presented to the ED from home for evaluation of shortness of breath the last couple of days as detailed in HPI. Labs, imaging, EKG, and all reports were personally reviewed. He was hypoxic with ambulation the ED and is being admitted in this setting for further workup. Chest x-ray shows small pleural effusions and minimal airspace opacities the lung bases which is likely atelectasis. Pneumonia seems unlikely by history; he is also afebrile with normal white blood cell count. History and workup are concerning for possible CHF with orthopnea, edema, and elevated proBNP. His sodium is lower than normal, likely due to mild volume overload. He does not appear dehydrated and again pneumonia seems unlikely. He will be judiciously diuresed with close monitoring of volume status, renal function, and electrolytes. Echocardiogram ordered. Pulmonary embolism is considered given lower extremity edema and shortness of breath though that seems less likely. Lower extremity venous Doppler ultrasounds have been ordered to rule out DVT. Edema may in fact
[2022-12-06 16:16] LABS: Glucose Point of Care 145 mg/dl (65-105)
--- NOTE | 2022-12-06 16:58 | PC.NURSE ---
This patient, Chepe Mark, was transferred to [facility] on 12/06/22 at 1610. Personal belongings sent with patient. Report given to SAHIL Lopes . Appropriate documentation sent with patient.
[2022-12-06 20:28] LABS: Glucose Point of Care 257 mg/dl (65-105)
[2022-12-07] VITALS: PULSE 47
[2022-12-07 04:00] VITALS: PULSE 45
[2022-12-07 06:00] VITALS: BP 154/67; PULSE 51; RESP 16; TEMP 36.8; O2SAT 95
[2022-12-07 06:38] LABS: Hematocrit 38.4 % (42.0-52.0); Hemoglobin 12.7 g/dL (14.0-18.0); Mean Corpuscular HGB Conc 33.1 g/dl (32-36); Mean Corpuscular Hemoglobin 31.6 pg (26-34); Mean Corpuscular Volume 95.5 fl (80-100); Mean Platelet Volume 10.3 fl (7.4-10.4); Platelet Count Result 228 k/mm3 (150-375); Red Blood Count 4.02 M/mm3 (4.6-6.20); Red Cell Distribution Width 12.5 % (11.5-14.5); White Blood Count 6.7 K/mm3 (4.5-10.0)
[2022-12-07 06:51] LABS: Anion Gap 5 mmol/L (8-16); Blood Urea Nitrogen 20 mg/dL (9-20); Calcium 8.8 mg/dL (8.4-10.2); Carbon Dioxide 32 mmol/L (22-30); Chloride 96 mmol/L (98-107); Estimated CRCL calculation 51 ml/min; Estimated Glomerular Filt Rate 59; Glucose 130 mg/dL (65-110); Magnesium 2.1 mg/dL (1.6-2.3); Potassium 3.5 mmol/L (3.4-5.0); Sodium 133 mmol/L (137-145)
[2022-12-07 08:00] VITALS: PULSE 56
[2022-12-07 08:02] LABS: Glucose Point of Care 143 mg/dl (65-105)
[2022-12-07] MEDS: FUROSEMIDE INJ 40 MG/4 ML VIAL 20 MG IV PUSH (08:38)
[2022-12-07] MEDS: POTASSIUM CHLORIDE 20 MEQ TABLET 40 MEQ PO (08:38)
[2022-12-07] MEDS: VALSARTAN 160 MG TABLET 320 MG PO (08:39)
[2022-12-07] MEDS: SIMVASTATIN 20 MG TABLET 40 MG PO (08:39)
[2022-12-07] MEDS: TERAZOSIN HCL 1 MG CAPSULE 2 MG PO (08:39)
[2022-12-07 08:41] VITALS: PULSE 54
[2022-12-07] MEDS: ENOXAPARIN 40 MG/0.4 ML SYRINGE SUB-Q (08:42)
[2022-12-07] MEDS: hydroCHLOROthiazide 25 MG TABLET PO (08:42)
[2022-12-07] MEDS: POTASSIUM CHLORIDE 20 MEQ TABLET.ER 40 MEQ PO (08:42)
[2022-12-07 08:43] VITALS: PULSE 54; RESP 16; O2SAT 95
[2022-12-07] MEDS: amLODIPine BESYLATE 5 MG TABLET 10 MG PO (08:43)
--- NOTE | 2022-12-07 10:21 | PM.DS ---
DS: Admitting Diagnosis Discharge Date 12/07/2022 Admitting Diagnosis shortness of breath DS: Discharge Diagnosis Discharge Diagnosis (1) Hypoxia: Code(s): R09.02 - Hypoxemia Status: Acute (2) Hyponatremia: Code(s): E87.1 - Hypo-osmolality and hyponatremia Status: Acute (3) Type 2 diabetes mellitus: Code(s): E11.9 - Type 2 diabetes mellitus without complications Status: Acute (4) Essential (primary) hypertension: Code(s): I10 - Essential (primary) hypertension Status: Acute (5) Hyperlipidemia: Code(s): E78.5 - Hyperlipidemia, unspecified Status: Acute (6) Monoclonal gammopathy of undetermined significance: Code(s): D47.2 - Monoclonal gammopathy Status: Acute Plan The patient presented to the ED from home for evaluation of shortness of breath the last couple of days as detailed in HPI. Labs, imaging, EKG, and all reports were personally reviewed. He was hypoxic with ambulation the ED and is being admitted in this setting for further workup. Chest x-ray shows small pleural effusions and minimal airspace opacities the lung bases which is likely atelectasis. Pneumonia seems unlikely by history; he is also afebrile with normal white blood cell count. History and workup are concerning for possible CHF with orthopnea, edema, and elevated proBNP. His sodium is lower than normal, likely due to mild volume overload. He does not appear dehydrated and again pneumonia seems unlikely. He will be judiciously diuresed with close monitoring of volume status, renal function, and electrolytes. Echocardiogram ordered. Pulmonary embolism is considered given lower extremity edema and shortness of breath though that seems less likely. Lower extremity venous Doppler ultrasounds have been ordered to rule out DVT. Edema may in fact be due to amlodipine which he was started on in the last couple of months. Blood pressures have been running in the 160 systolic and should improve with diuresis. Continue antihypertensives and monitor. Hold metformin while hospitalized. Initiate sliding scale insulin, Accu-Cheks, and hypoglycemic protocol. Check A1c. The rest of his home medications will be reviewed and resumed as appropriate. 12/06/2022 interval history: 77 year male presents with complaint of shortness of breath patient's symptoms however worse lying down patient has orthopnea to further evaluate patient had a cardiac echo patient has preserved LV function with ejection fraction 65% and grade 2 diastolic dysfunction most likely patient is having acute on chronic diastolic congestive heart failure patient is being diuresed, Lasix 20 mg IV b.i.d. patient states feeling much better compared to when he arrived not as short of breath, chest x-ray is concerning for pneumonia most likely community-acquired patient is being treated with ceftriaxone and azithromycin, will continue to monitor, patient's is present in the room DS: Summary Hospital Course Reason for hospitalization: Shortness of breath. Narrative: This is a pleasant 77-year-old male with hypertension, hyperlipidemia, type 2 diabetes mellitus, and monoclonal gammopathy of undetermined significance who presented to the emergency department from home for evaluation of shortness of breath. Patient provides the following history. Over the last couple of days he has felt as though he cannot get in a deep breath and last night he slept poorly due to feelings of shortness of breath, most notably while supine. The 2nd half of the night he slept in his recliner and seemed less short of breath with that. With further questioning he does note the development of lower extremity edema up to the knees which started within the last month or so following a change in his blood pressure medications, now on amlodipine instead of nifedipine. He denies fever, chills, sweats, headache, sinus congestion, sore throat, cough, nausea, vomiting, and diarrhea. He also denie
== END 2022-12-07 10:55 | disposition home or self-care (01) | DRG 291 ==
LOC: ANHED 13:56 → ANHIMU 15:05 → ANH2MED 12-06 16:02
PROVIDERS: Physician Assistant; Admitting Provider Internal Medicine; Emergency Provider Emergency Medicine; PCP Internal Medicine; Visit Provider Family Medicine
DX: I11.0 Hypertensive heart disease with heart failure (principal); I50.33 Acute on chronic diastolic (congestive) heart failure; J18.9 Pneumonia, unspecified organism; E87.1 Hypo-osmolality and hyponatremia; R09.02 Hypoxemia; I27.20 Pulmonary hypertension, unspecified; E11.9 Type 2 diabetes mellitus without complications; E78.5 Hyperlipidemia, unspecified; D47.2 Monoclonal gammopathy; Z20.822 Contact with and (suspected) exposure to COVID-19; M17.12 Unilateral primary osteoarthritis, left knee; E87.6 Hypokalemia
CPT/HCPCS: 36415; 71046; 80048; 80053; 81001; 82948; 83036; 83735; 83880; 84443; 84484; 85025; 85027; 87636; 93005; 93306; 93970; 94640; 96372; 96375; 96376; 99285; A9270; G0378; J0696; J1650; J1940

== ENCOUNTER 2022-12-28 06:13 | Inpatient (IN) | payer MEDICARE, SELFPAY ==
[2022-12-28] VITALS (44 sets, daily range): BP systolic 124–180; BP diastolic 53–89; PULSE 48–82; RESP 16–33; TEMP 36.3–38.4; O2SAT 87–100; BMI 30.6
--- NOTE | ~2022-12-28 | XR_ITS ---
Portable chest x-ray Comparison: 12/28/2022 Clinical History: CHF Findings: Possible minimal bibasilar pulmonary edema present. No pleural effusion. Cardiomediastina l silhouette is stable. Bones and soft tissues are unremarkable. Impression: Possible minimal bibasilar pulmonary edema. Reviewed, dictated and finalized at [facility]. AINABILITY COMMUNICATOR Impression: Possible minimal bibasilar pulmonary edema.
--- NOTE | ~2022-12-28 | CT_ITS ---
EXAMINATION: CTA chest PE protocol DATE: 12/30/2022 20:36 INDICATION: Shortness of breath TECHNIQUE: Computed tomography angiography (CTA) of the chest was performed with 100 mL Omnipaque-350 intravenous contrast timed to evaluate the pulmonary arteries. Coronal maximum intensity projection 3D-reconstructions were created by the technologist. The dose-length product (DLP) was 585.52 mGy-cm. Automated exposure control and iterative reconstruction technique were employed. COMPARISON: 10/08/2022 FINDINGS: The pulmonary arteries are well-opacified. No pulmonary embolism is identified. There is en largement of the main and central pulmonary arteries, consistent with pulmonary hypertension. There a re small pleural effusions. Cardiomegaly is noted. There is mild mediastinal lymphadenopathy, likely reactive. Again seen is a 7 mm nodule of the right lower lobe. There is mild dependent atelectasis. N o pneumothorax is identified. Punctate calcifications in an otherwise normal spleen likely represent healed granulomatous disease. 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 There is mild t horacic spondylosis. IMPRESSION: 1. No pulmonary embolus. 2. Small pleural effusions. 3. Mild mediastinal lymphadenopathy, likely reactive. 4. Cardiomegaly. Reviewed, dictated and finalized at location [facility]. N BLIND LOOM TENDER
--- NOTE | ~2022-12-28 | XR_ITS ---
Portable chest x-ray Comparison: 12/06/2022 Clinical History: Dyspnea Findings: Suggestion of minimal pulmonary edema pattern bilaterally. No pleural effusion. Cardiomed iastinal silhouette is stable. Bones and soft tissues are unremarkable. Impression: Probable minimal pulmonary edema. Reviewed, dictated and finalized at [facility]. ICAL NURSE REVIEWER Impression: Probable minimal pulmonary edema.
--- NOTE | 2022-12-28 06:20 | ECG_ITS ---
Measurements Intervals [place] Rate: 75 P: -7 TX: 219 QRS: 3 QRSD: 96 T: 31 QT: 379 QTc: 424 Interpretive Statements SINUS RHYTHM WITH FIRST DEGREE AV BLOCK BASELINE ARTIFACT NONSPECIFIC ST & T-WAVE ABNORMALITY BORDERLINE ECG COMPARED TO ECG 12/04/2022 10:02:42 HEART RATE HAS INCREASED T-WAVE ABNORMALITY NOW PRESENT Electronically Signed On 12-28-2022 14:12:10 PRINTING PLATE MAKER by Vincent Cottrell M.D.
--- NOTE | 2022-12-28 06:22 | ED.GENADULT ---
HPI - General Adult General Chief complaint: Shortness of Breath/Dyspnea <Carlos Woodard MD - Last Filed: 12/28/22 06:49> Stated complaint: resp distress, RA 55%, bipap <Carlos Woodard MD - Last Filed: 12/28/22 06:49> Time Seen by Provider: 12/28/22 06:15 <Carlos Woodard MD - Last Filed: 12/28/22 06:49> History of Present Illness HPI narrative: Patient is a 77-year-old gentleman who presents the emergency department with chief complaint of shortness of breath. Patient reports that yesterday he started having shortness of breath EMS was called he was found to be hypoxic patient was started on CPAP prior to arrival patient was recently admitted for a CHF exacerbation and pneumonia <Carlos Woodard MD - Last Filed: 12/28/22 06:49> Related Data Allergies/adverse reactions: Allergies Allergy/AdvReac Type Severity Reaction Status Date / Time No Known Allergies Allergy Mild Verified 12/28/22 06:21 <Carlos Woodard MD - Last Filed: 12/28/22 06:49> Review of Systems Review of Systems: A 10 system review of systems was completed on the patient and is negative except for what is stated in the HPI. Nursing and ancillary documentation was reviewed. <Carlos Woodard MD - Last Filed: 12/28/22 06:49> PMFSH Past Medical History Medical History: Medical History Essential (primary) hypertension Hyperlipidemia Monoclonal gammopathy of undetermined significance Followed by specialist at [facility]. Primary osteoarthritis of left knee Type 2 diabetes mellitus <Carlos Woodard MD - Last Filed: 12/28/22 06:49> Surgical History Surgical History: Surgical History No pertinent past surgical history <Carlos Woodard MD - Last Filed: 12/28/22 06:49> Family History Family History: Family History Father Family history of Alzheimer's disease Other Cerebrovascular accident Family history of arthritis Hypertension <Carlos Woodard MD - Last Filed: 12/28/22 06:49> Social History Social History: Social History Social History: Surrogate medical decision maker: Hansa Mark, spouse. Code status: Full code. Smoking status: Never smoker Second hand tobacco smoke exposure: No Alcohol intake: current Drinks per week: 10 Alcohol use details: Social alcohol use in moderation. Substance use: never Substance use type: does not use Lack of Transportation: No Lack of Food: Never True Current Housing: I Have Housing Concerned About Future Housing: No Difficulty Paying Gas/Electric Bills: No Difficulty Paying for Meds: No Currently Unemployed: No Education: Associate Degree Difficulty w/ Childcare or Family Care: No Additional living arrangements comments: Lives with spouse in [place]. 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 Spiritual care concerns: No <Carlos Woodard MD - Last Filed: 12/28/22 06:49> Exam Narrative: GENERAL: Well-appearing, well-nourished, and in no acute distress. Currently on BiPAP HEAD: Normocephalic, atraumatic. EYES: PERRLA and EOMI. ENT: Nares clear, no rhinorrhea or epistaxis. Mucous membranes moist. NECK: Supple. CHEST: Clear to auscultation. No respiratory distress. HEART: Regular rate and rhythm. No murmur heard. Normal peripheral pulses. ABDOMEN: Soft, nontender, nondistended, normal active bowel sounds. EXTREMITIES: Normal range of motion. No edema. SKIN: Warm, dry, no rash. NEURO: No focal deficits. Alert and oriented x3. PSYCH: Normal mood and affect. <Carlos Woodard MD - Last Filed: 12/28/22 06:49> Course Course Emergency Course: 08
[2022-12-28 06:34] LABS: Base Excess ABG -0.7 mEq/l (+/-2.0); Basophils Percent Auto 0.3 % (0.2-1.2); Eosinophils Percent Auto 0.3 % (0-4.4); Fractional Inspired Oxygen 60 %; Hemoglobin 12.2 g/dL (14.0-18.0); Immature Granulocyte Absolute 0.06 K/mm3 (0.00-0.031); Immature Granulocyte Percent A 0.5 % (0-0.5); Lymphocytes Absolute Auto 1.51 K/mm3 (0.9-3.2); Lymphocytes Percent Auto 12.7 % (18.3-44.2); Mean Corpuscular HGB Conc 32.1 g/dl (32-36); Mean Corpuscular Hemoglobin 30.8 pg (26-34); Mean Platelet Volume 11.3 fl (7.4-10.4); Monocytes Absolute Auto 1.3 K/mm3 (0.1-0.6); Monocytes Percent Auto 11.2 % (2.6-8.5); Neutrophils Absolute Auto 8.9 K/mm3 (1.3-6.7); Oxygen Content ABG 11.7 %vol (16.0-22.0); PCO2 ABG 45.4 mmHg (35.0-45.0); PO2 FiO2 Ratio Arterial Blood 0.62 %; Platelet Count Result 223 k/mm3 (150-375); Red Blood Count 3.96 M/mm3 (4.6-6.20); Total Hemoglobin 13.3 g/dL (12.0-18.0); White Blood Count 11.9 K/mm3 (4.5-10.0); pH ABG 7.359 (7.350-7.450)
[2022-12-28 06:36] LABS: PO2 ABG 36.9 mmHg (80.0-100.0)
[2022-12-28 06:37] LABS: Device BIPAP; Inspiratory Pressure 12 cmH2O; Modified Allen's Test Pass; Oxygen Saturation ABG 67.8 % (95.0-100.0); Oxyhemoglobin 62.7 % THb (90.0-100.0); Site Drawn LEFT RADIAL
[2022-12-28 06:38] LABS: Expiratory Pressure 6 cmH2O
[2022-12-28 06:42] LABS: INR 1.1; Prothrombin Time 14.2 Seconds (11.1-14.7)
[2022-12-28 06:43] LABS: Partial Thromboplastin Time 29.7 SECONDS (22.3-36.8)
[2022-12-28 06:47] LABS: Alveolar/Arterial O2 Gradient 305.3 mmHg; Base Excess ABG 0.3 mEq/l (+/-2.0); Fractional Inspired Oxygen 60 %; HCO3 ABG 25.2 mEq/l (22.0-26.0); Oxygen Content ABG 16.6 %vol (16.0-22.0); Oxygen Saturation ABG 95.3 % (95.0-100.0); Oxyhemoglobin 92.7 % THb (90.0-100.0); PCO2 ABG 41.8 mmHg (35.0-45.0); PO2 ABG 76.5 mmHg (80.0-100.0); PO2 FiO2 Ratio Arterial Blood 1.27 %; Total Hemoglobin 12.7 g/dL (12.0-18.0); pH ABG 7.398 (7.350-7.450)
[2022-12-28 06:48] LABS: Alanine Aminotransferase 19 U/L (6-50); Albumin Level 4.7 g/dL (3.5-5.1); Alkaline Phosphatase 66 U/L (38-126); Anion Gap 9 mmol/L (8-16); Aspartate Amino Transferase 18 U/L (17-59); Bilirubin,Total 0.7 mg/dL (0.2-1.3); Blood Urea Nitrogen 19 mg/dL (9-20); Calcium 8.6 mg/dL (8.4-10.2); Carbon Dioxide 25 mmol/L (22-30); Chloride 99 mmol/L (98-107); Estimated CRCL calculation 51 ml/min; Estimated Glomerular Filt Rate 59; Glucose 222 mg/dL (65-110); Lactic Acid Reflex 1.8 mmol/L (0.7-2.0); Magnesium 2.1 mg/dL (1.6-2.3); Potassium 3.9 mmol/L (3.4-5.0); Sodium 133 mmol/L (137-145)
[2022-12-28 06:50] LABS: Device BIPAP; Expiratory Pressure 6 cmH2O; Inspiratory Pressure 12 cmH2O; Modified Allen's Test Pass; Site Drawn RIGHT RADIAL
[2022-12-28 06:59] LABS: NT Pro B Type Natriuretic Pept 3390 pg/mL (19.9-100); Troponin I 0.013 ng/mL (0.000-0.034)
[2022-12-28 07:07] LABS: Influenza A QL RT-PCR Negative (Negative); Influenza B QL RT-PCR Negative (Negative); RSV RNA, RT-PCR Negative (Negative); SARS-CoV-2 RNA PCR Positive
[2022-12-28 07:11] LABS: Procalcitonin 0.1 ng/mL
[2022-12-28 07:38] LABS: Appearance Urine Clear (Clear); Bacteria Urine None Seen /hpf; Bilirubin Urine Negative (Negative); Blood Urine Trace (Negative); Color Urine Yellow (Yellow); Glucose Urine UA 1+ mg/dL (Negative); Ketones Urine Negative (Negative); Leukocyte Esterase Ur Negative LEU/UL (Negative); Nitrate Urine Negative (Negative); Protein Urine 3+ mg/dL (Negative); RBC Urine 0-2 /hpf (0-2); Specific Grav Ur 1.014 (1.001-1.035); Squamous Epithelial Cell Urine None seen /hpf (Few); WBC Urine 0-5 /hpf
[2022-12-28 07:45] LABS: Add Urine Microscopic? YES
[2022-12-28] MEDS: FUROSEMIDE INJ 40 MG/4 ML VIAL IV PUSH ×3 (07:57→21:03)
[2022-12-28] MEDS: NITROGLYCERIN OINTMENT 1 INCH DOSE TRANSDERM (07:57)
[2022-12-28 09:23] LABS: Troponin I 0.058 ng/mL (0.000-0.034)
--- NOTE | 2022-12-28 10:23 | ADMGEN ---
This patient, Chepe Mark, was admitted to IMU Room 214-01. 09:05 report taken from Maikel. Patient/family oriented to hospital policies and general routines including ID bracelet, bed and alarms, visiting hours, pain management, procedures, bathroom and other care routines, personal items, smoking policy, room service/diet, and visiting hours. Information on how to activate the Rapid Response Team has been discussed. Patient/Family are encouraged to report perceived risks to care and to ask questions if they do not understand what they are told or what they should do.
--- NOTE | 2022-12-28 12:03 | PM.IMHP ---
H&P: HPI History of Present Illness Date/Time: 12/28/22 12:03 Chief Complaint: Patient is a 77-year-old gentleman who presents the emergency department with chief complaint of shortness of breath.? Patient reports that yesterday he started having shortness of breath EMS was called he was found to be hypoxic patient was started on CPAP prior to arrival patient was recently admitted for a CHF exacerbation and pneumonia PMFSH Past Medical History Medical History Essential (primary) hypertension Hyperlipidemia Monoclonal gammopathy of undetermined significance Followed by specialist at [facility]. Primary osteoarthritis of left knee Type 2 diabetes mellitus Surgical History Surgical History No pertinent past surgical history Family History Family History Father Family history of Alzheimer's disease Other Cerebrovascular accident Family history of arthritis Hypertension Social History Social History Social History: Surrogate medical decision maker: Hansa Jas, spouse. Code status: Full code. Smoking status: Never smoker Second hand tobacco smoke exposure: No Alcohol intake: current Drinks per week: 10 Alcohol use details: Social alcohol use in moderation. Substance use: never Substance use type: does not use Lack of Transportation: No Lack of Food: Never True Current Housing: I Have Housing Concerned About Future Housing: No Difficulty Paying Gas/Electric Bills: No Difficulty Paying for Meds: No Currently Unemployed: No Education: Associate Degree Difficulty w/ Childcare or Family Care: No Additional living arrangements comments: Lives with spouse in [place]. 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 Spiritual care concerns: No Meds Home Medications and Allergies Home Medications Medication Instructions Recorded Confirmed Type blood-glucose meter #1 ea 09/12/20 12/28/22 Rx blood sugar diagnostic (Blood #300 ea 10/23/21 12/28/22 Rx Glucose Test strips) lancets 33 gauge (BD Ultra Fine #300 ea 10/23/21 12/28/22 Rx Lancets) carvedilol 25 mg tablet (Coreg) 25 mg PO Q12H #180 tabs 04/26/22 12/28/22 Rx metformin 500 mg tablet 500 mg PO BID 90 days #180 tabs 10/18/22 12/28/22 Rx amlodipine 10 mg tablet 10 mg PO DAILY #90 tabs 10/27/22 12/28/22 Rx simvastatin 40 mg tablet 40 mg PO DAILY #90 tabs 10/31/22 12/28/22 Rx valsartan 320 1 tablet PO DAILY #90 tabs 11/22/22 12/28/22 Rx mg-hydrochlorothiazide 25 mg tablet terazosin 2 mg capsule 2 mg PO DAILY #90 caps 12/24/22 12/28/22 Rx Allergies Allergy/AdvReac Type Severity Reaction Status Date / Time No Known Allergies Allergy Mild Verified 12/28/22 06:21 Vital Signs Vital Signs - 24 hr 12/28/22 06:12 12/28/22 06:20 12/28/22 06:35 Temperature 100.8 F H 101.2 F H Pulse Rate 82 Respiratory Rate 33 H Blood Pressure 180/89 H Pulse Oximetry 87 L 98 Oxygen Delivery BiPAP BiPAP Oxygen Flow Rate Fraction of Inspired Oxygen 12/28/22 06:45 12/28/22 06:48 12/28/22 07:18 Temperature Pulse Rate 78 69 Respiratory Rate 18 Blood Pressure Pulse Oximetry 95 97 Oxygen Delivery BiPAP BiPAP Oxygen Flow Rate Fraction of Inspired Oxygen 12/28/22 08:26 12/28/22 06:22 12/28/22 06:32 Temperature 99.9 F H Pulse Rate 76 75 Respiratory Rate 26 H 25 H Blood Pressure 158/57 H Pulse Oximetry 100 94 Oxygen Delivery Oxygen Flow Rate Fraction of Inspired Oxygen 12/28/22 06:33 12/28/22 06:45 12/28/22 06:47 Temperature Pulse Rate 71 68 68 Respiratory Rate 25 H 30 H 22 H Blood Pressure 134/77 Pulse Oximetry 96 94 95 Oxygen Delivery Oxygen Flow Rate Fraction of Inspired Oxygen
[2022-12-28] MEDS: FUROSEMIDE INJ 40 MG/4 ML VIAL 20 MG IV PUSH (12:20)
--- NOTE | 2022-12-28 12:39 | PM.CNCAR ---
Assessment and Plan Assessment and plan (1) Acute heart failure with preserved ejection fraction: Code(s): I50.31 - Acute diastolic (congestive) heart failure Status: Acute Assessment and Plan: Acute on chronic heart failure with preserved ejection fraction improved with IV diuresis. Patient is also COVID positive. Patient hypertensive presentation improved thus far. Continue home antihypertensive regimen. Monitor renal function electrolytes closely. Accurate input and output, daily weight. Apnea link overnight the patient is more fully recovered prior to discharge to screen for HALLE. Adequate BP control. Continue IV Lasix change to 40 mg IV q.12 hours monitor renal function electrolytes closely. (2) Troponin level elevated: Code(s): R77.8 - Other specified abnormalities of plasma proteins Status: Acute Assessment and Plan: Slight troponin elevation in the setting of acute severe hypoxic respiratory failure, decompensated heart failure preserved ejection fraction most likely type 2 infarction not secondary to acute coronary syndrome and/or plaque rupture. Continue to trend troponins nonetheless. Initial ECG with nonspecific ST abnormality, repeat ECG., aspirin 81 mg daily for now. Outpatient ischemic evaluation reasonable given repeat admission for decompensated heart failure to exclude underlying CAD as contribution. Patient is not reporting anginal symptoms prior to admission, however, but has multiple risk factors. (3) Pulmonary hypertension: Code(s): I27.20 - Pulmonary hypertension, unspecified Status: Acute Assessment and Plan: Severe, RVSP 67 mm Hg. Etiology remains unclear likely multifactorial. Cannot exclude left-sided heart disease. Workup as an outpatient anticipated and is particularly concerning given patient's prior to reported history of recurrent unexplained syncope. No recurrence prior to this admission. Apnea link prior to discharge to screen for HALLE. (4) Hypertension associated with diabetes: Code(s): E11.59 - Type 2 diabetes mellitus with other circulatory complications; I15.2 - Hypertension secondary to endocrine disorders Status: Acute Assessment and Plan: BP elevated initially improved thus far. Continue antihypertensives as above with carvedilol 25 mg twice daily, amlodipine 10 mg daily, terazosin 2 mg daily, valsartan 320 mg daily. Patient remains on hydrochlorothiazide for now but will need to monitor renal function electrolytes very closely with concomitant Lasix. Depending on patient's tolerance and response to therapy may consider discontinuation of hydrochlorothiazide in favor of spironolactone cautious to avoid intravascular volume depletion and or orthostasis in to assist in maintenance of potassium levels. (5) COVID-19: Code(s): U07.1 - COVID-19 Status: Acute Assessment and Plan: Remains in isolation. Management per primary service. Dexamethasone has been ordered. (6) Hyperlipidemia associated with type 2 diabetes mellitus: Code(s): E11.69 - Type 2 diabetes mellitus with other specified complication; E78.5 - Hyperlipidemia, unspecified Status: Acute Assessment and Plan: Reduce simvastatin to 20 mg daily given interaction with amlodipine and or alternative statin would be preferred if lipids poorly controlled LDL 70, 10/30/2022. History of Present Illness History of Present Illness Consult date/time: Date of service: 12/28/22 12:39 Requesting physician: Durga Mott MD Consult reason: congestive heart failure Reason For Visit: CHF Exacerbation/COVID Narrative: Patient is a very pleasant 77-year-old male with past medical history significant for severe pulmonary hypertension, longstanding hypertension, type 2 diabetes mellitus, hyperlipidemia, [id number] mitral regurgitation, history of unexplained syncope was admitted earlier this month with uncontrolled hypertensi
[2022-12-28] MEDS: carvediloL 25 MG TABLET PO ×2 (15:23→21:03)
[2022-12-28 15:49] LABS: Troponin I 0.087 ng/mL (0.000-0.034)
[2022-12-28] MEDS: metFORMIN HCL 500 MG TABLET PO (18:30)
[2022-12-28 20:10] LABS: Glucose Point of Care 157 mg/dl (65-105)
[2022-12-29] VITALS (16 sets, daily range): BP systolic 146–188; BP diastolic 58–71; PULSE 50–82; RESP 18–20; TEMP 36.5–37.2; O2SAT 94–98
[2022-12-29 05:14] LABS: Basophils Percent Auto 0.4 % (0.2-1.2); Eosinophils Percent Auto 0.6 % (0-4.4); Hematocrit 33.7 % (42.0-52.0); Hemoglobin 10.9 g/dL (14.0-18.0); Immature Granulocyte Absolute 0.01 K/mm3 (0.00-0.031); Immature Granulocyte Percent A 0.2 % (0-0.5); Lymphocytes Absolute Auto 1.46 K/mm3 (0.9-3.2); Lymphocytes Percent Auto 27.5 % (18.3-44.2); Mean Corpuscular HGB Conc 32.3 g/dl (32-36); Mean Corpuscular Hemoglobin 30.7 pg (26-34); Mean Corpuscular Volume 94.9 fl (80-100); Mean Platelet Volume 10.8 fl (7.4-10.4); Monocytes Absolute Auto 1.1 K/mm3 (0.1-0.6); Monocytes Percent Auto 21.5 % (2.6-8.5); Neutrophils Absolute Auto 2.7 K/mm3 (1.3-6.7); Neutrophils Percent Auto 49.8 % (45.5-73.1); Platelet Count Result 183 k/mm3 (150-375); Red Blood Count 3.55 M/mm3 (4.6-6.20); Red Cell Distribution Width 12.8 % (11.5-14.5); White Blood Count 5.3 K/mm3 (4.5-10.0)
[2022-12-29 05:26] LABS: Anion Gap 6 mmol/L (8-16); Blood Urea Nitrogen 23 mg/dL (9-20); Calcium 8.2 mg/dL (8.4-10.2); Carbon Dioxide 30 mmol/L (22-30); Chloride 97 mmol/L (98-107); Estimated CRCL calculation 50 ml/min; Estimated Glomerular Filt Rate 49; Glucose 128 mg/dL (65-110); Potassium 3.1 mmol/L (3.4-5.0); Sodium 133 mmol/L (137-145)
[2022-12-29 05:35] LABS: NT Pro B Type Natriuretic Pept 2840 pg/mL (19.9-100)
[2022-12-29 07:17] LABS: Glucose Point of Care 149 mg/dl (65-105)
--- NOTE | 2022-12-29 08:00 | ECG_ITS ---
Measurements Intervals [place] Rate: 49 P: 42 MN: 263 QRS: -10 QRSD: 88 T: 44 QT: 461 QTc: 420 Interpretive Statements SINUS BRADYCARDIA WITH FIRST DEGREE AV BLOCK BASELINE ARTIFACT MODERATE VOLTAGE CRITERIA FOR LVH, CONSIDER NORMAL VARIANT NONSPECIFIC T-WAVE ABNORMALITY BORDERLINE ECG COMPARED TO ECG 12/28/2022 06:22:58 HEART RATE HAS DECREASED Electronically Signed On 12-29-2022 15:25:57 EQUITY HOLDER by Vincent Cottrell M.D.
[2022-12-29] MEDS: VALSARTAN 160 MG TABLET 320 MG PO (09:38)
[2022-12-29] MEDS: metFORMIN HCL 500 MG TABLET PO ×2 (09:38→16:50)
[2022-12-29] MEDS: TERAZOSIN HCL 1 MG CAPSULE 2 MG PO (09:39)
[2022-12-29] MEDS: SIMVASTATIN 20 MG TABLET PO (09:39)
[2022-12-29] MEDS: DEXAMETHASONE 4 MG TABLET PO (09:39)
[2022-12-29] MEDS: carvediloL 25 MG TABLET PO ×2 (09:39→21:04)
[2022-12-29] MEDS: amLODIPine BESYLATE 5 MG TABLET 10 MG PO (09:39)
[2022-12-29] MEDS: hydroCHLOROthiazide 25 MG TABLET PO (09:40)
[2022-12-29] MEDS: POTASSIUM CHLORIDE 20 MEQ PACKET (FOR LIQUID) 40 MEQ PO (09:40)
[2022-12-29] MEDS: FUROSEMIDE INJ 40 MG/4 ML VIAL IV PUSH ×2 (09:43→21:06)
--- NOTE | 2022-12-29 10:10 | PM.PNCARD ---
Progress Note: A&P Assessment and Plan (1) Acute heart failure with preserved ejection fraction: Code(s): I50.31 - Acute diastolic (congestive) heart failure Status: Acute Assessment and Plan: Acute on chronic heart failure with preserved ejection fraction improved with IV diuresis.? Patient is also COVID positive.? Patient hypertensive presentation improved thus far.? Continue home antihypertensive regimen.? Monitor renal function electrolytes closely.? Accurate input and output, daily weight.? Apnea link overnight the patient is more fully recovered prior to discharge to screen for HALLE.? Adequate BP control.? Continue IV Lasix, monitor renal function electrolytes closely. (2) Troponin level elevated: Code(s): R77.8 - Other specified abnormalities of plasma proteins Status: Acute Assessment and Plan: Slight troponin elevation in the setting of acute severe hypoxic respiratory failure, decompensated heart failure preserved ejection fraction most likely type 2 infarction not secondary to acute coronary syndrome and/or plaque rupture.? Continue to trend troponins nonetheless.? Initial ECG with nonspecific ST abnormality, repeat ECG., aspirin 81 mg daily for now.? Outpatient ischemic evaluation reasonable given repeat admission for decompensated heart failure to exclude underlying CAD as contribution.? Patient is not reporting anginal symptoms prior to admission, however, but has multiple risk factors. (3) Pulmonary hypertension: Code(s): I27.20 - Pulmonary hypertension, unspecified Status: Acute Assessment and Plan: Severe, RVSP 67 mm Hg.? Etiology remains unclear likely multifactorial.? Cannot exclude left-sided heart disease.? Workup as an outpatient anticipated and is particularly concerning given patient's prior to reported history of recurrent unexplained syncope.? No recurrence prior to this admission. Apnea link prior to discharge to screen for HALLE. (4) Hypertension associated with diabetes: Code(s): E11.59 - Type 2 diabetes mellitus with other circulatory complications; I15.2 - Hypertension secondary to endocrine disorders Status: Acute Assessment and Plan: BP elevated initially improved thus far.? Continue antihypertensives as above with carvedilol 25 mg twice daily, amlodipine 10 mg daily, terazosin 2 mg daily, valsartan 320 mg daily.? Patient remains on hydrochlorothiazide for now but will need to monitor renal function electrolytes very closely with concomitant Lasix.? Depending on patient's tolerance and response to therapy may consider discontinuation of hydrochlorothiazide in favor of spironolactone cautious to avoid intravascular volume depletion and or orthostasis in to assist in maintenance of potassium levels. (5) COVID-19: Code(s): U07.1 - COVID-19 Status: Acute Assessment and Plan: Remains in isolation.? Management per primary service.? Dexamethasone has been ordered. (6) Hyperlipidemia associated with type 2 diabetes mellitus: Code(s): E11.69 - Type 2 diabetes mellitus with other specified complication; E78.5 - Hyperlipidemia, unspecified Status: Acute Assessment and Plan: Reduce simvastatin to 20 mg daily given interaction with amlodipine and or alternative statin would be preferred if lipids poorly controlled LDL 70, 10/30/2022. Subjective Date/time seen: 12/29/22 10:10 Interval history: Reason for visit: Decompensated heart failure HPI: Patient is a very pleasant 77-year-old male with past medical history significant for severe pulmonary hypertension, longstanding hypertension, type 2 diabetes mellitus, hyperlipidemia, [id number] mitral regurgitation, history of unexplained syncope was admitted earlier this month with uncontrolled hypertension, shortness of breath and diuresed due to lower extremity edema and abdominal distension.? Patient states he believes lower extremity edema was more prominent after
--- NOTE | 2022-12-29 11:42 | PM.IMPN ---
Progress Note: A&P Assessment and Plan (1) Hyperlipidemia: Code(s): E78.5 - Hyperlipidemia, unspecified Status: Acute Assessment and Plan: Continue home medications (2) Type 2 diabetes mellitus: Code(s): E11.9 - Type 2 diabetes mellitus without complications Status: Acute Assessment and Plan: Continue home medications and monitor blood sugar in the hospital. Sliding scale insulin as needed (3) Essential (primary) hypertension: Code(s): I10 - Essential (primary) hypertension Status: Acute Assessment and Plan: Monitor blood pressure and continue home meds (4) CHF (congestive heart failure): Code(s): I50.9 - Heart failure, unspecified Status: Acute Assessment and Plan: Resume home medications and cardiac medications. Continue Lasix IV. Echo reviewed, he does have significant diastolic dysfunction along with elevated pulmonary artery pressure. Appreciate cardiology input. Will need evaluation pressures for sleep apnea. Will add D-dimer Venous duplex negative (5) Pneumonia: Code(s): J18.9 - Pneumonia, unspecified organism Status: Acute Assessment and Plan: IV antibiotics COVID positive, dexamethasone Think most shortness of breath is likely related to volume overloaded and cardiac etiology. (6) Acute kidney injury: Code(s): N17.9 - Acute kidney failure, unspecified Status: Acute Assessment and Plan: Baseline creatinine 1.2. Creatinine days 1.4. This is secondary to diuresis. Monitor Subjective Date/time seen: 12/29/22 11:42 Patient reports shortness of breath is much better. Has diuresed well. Still has edema and appears to be volume overloaded Exam Narrative: General: Very pleasant male sitting upright in bed, well developed, alert and oriented x3. No apparent distress, comfortable, pleasant, and cooperative. Head: atraumatic, normocephalic Eyes: EOM intact, sclerae anicteric, conjunctivae unremarkable Ears/Nose: external inspection of ears and nose were grossly normal Mouth/Throat: oral mucosa pink and moist Neck: supple, normal range of motion, no jugular venous distention or carotid bruits, thyroid nonpalpable, trachea midline. Cardiac: Regular rate and rhythm, normal S1-S2, grade 2 to 3/6 systolic murmur Lungs: Bibasilar crackles lower 1/3 lung watts, without obvious wheezes, or rhonchi. Abdomen: Distended, nontender, , positive bowel sounds throughout. Unable to appreciate hepatosplenomegaly, no rebound guarding or rigidity noted. Abdominal aorta nonpalpable, no appreciable bruits. Extremities: 2-3+ bilateral lower extremity edema extending up to the abdomen, slight wrinkling of the skin, no clubbing, or cyanosis. Extremities warm and well perfused. Skin: Warm and dry without ecchymoses, rashes, and/or petechiae. Musculoskeletal: Muscle strength and tone intact throughout without obvious deformities. Vascular: Carotid upstrokes 2+ bilaterally, radial pulses 2+ bilaterally, dorsalis pedis pulses 1 bilaterally Neurologic: Cranial nerves 2-12 grossly intact, examination grossly nonfocal Psychiatric: Mood calm and appropriate. Objective Data Vital Signs Vital Signs: Vital Signs - 24 hr 12/28/22 12:25 12/28/22 12:00 12/28/22 15:23 Temperature 97.4 F L Pulse Rate 54 L 54 L Respiratory Rate 22 H Blood Pressure 153/63 H Pulse Oximetry 97 95 Oxygen Delivery Nasal Cannula Oxygen Flow Rate 4 Fraction of Inspired Oxygen 12/28/22 12:00 12/28/22 14:00 12/28/22 16:00 Temperature Pulse Rate 64 50 L 58 L Respiratory Rate Blood Pressure Pulse Oximetry Oxygen Delivery Oxygen Flow Rate Fraction of Inspired Oxygen 12/28/22 18:00 12/28/22 16:00 12/28/22 16:52 Temperature Pulse Rate 51 L 76 Respiratory Rate Blood Pressure Pulse Oximetry 95 95 Oxygen Delivery Nasal Cannula Nasal
[2022-12-29 12:14] LABS: Glucose Point of Care 174 mg/dl (65-105)
[2022-12-29 13:04] LABS: D Dimer 1.23 ug/mL (<0.48)
[2022-12-29] MEDS: INSULIN ASPART (*BKC) 100 UNITS/ML SUB-Q (16:51)
[2022-12-29 16:53] LABS: Glucose Point of Care 213 mg/dl (65-105)
[2022-12-29 20:42] LABS: Glucose Point of Care 202 mg/dl (65-105)
[2022-12-30] VITALS (19 sets, daily range): BP systolic 164–193; BP diastolic 64–78; PULSE 39–64; RESP 18–20; TEMP 36.3–36.8; O2SAT 95–100
[2022-12-30 04:09] LABS: Basophils Percent Auto 0.3 % (0.2-1.2); Hematocrit 36.1 % (42.0-52.0); Hemoglobin 11.7 g/dL (14.0-18.0); Immature Granulocyte Absolute 0.01 K/mm3 (0.00-0.031); Immature Granulocyte Percent A 0.3 % (0-0.5); Lymphocytes Absolute Auto 1.13 K/mm3 (0.9-3.2); Lymphocytes Percent Auto 28.8 % (18.3-44.2); Mean Corpuscular HGB Conc 32.4 g/dl (32-36); Mean Corpuscular Hemoglobin 31.3 pg (26-34); Mean Corpuscular Volume 96.5 fl (80-100); Mean Platelet Volume 10.9 fl (7.4-10.4); Monocytes Absolute Auto 0.6 K/mm3 (0.1-0.6); Monocytes Percent Auto 14.5 % (2.6-8.5); Neutrophils Absolute Auto 2.2 K/mm3 (1.3-6.7); Neutrophils Percent Auto 56.1 % (45.5-73.1); Platelet Count Result 187 k/mm3 (150-375); Red Blood Count 3.74 M/mm3 (4.6-6.20); Red Cell Distribution Width 12.7 % (11.5-14.5); White Blood Count 3.9 K/mm3 (4.5-10.0)
[2022-12-30 04:18] LABS: Anion Gap 7 mmol/L (8-16); Blood Urea Nitrogen 25 mg/dL (9-20); Calcium 8.3 mg/dL (8.4-10.2); Carbon Dioxide 32 mmol/L (22-30); Chloride 98 mmol/L (98-107); Estimated CRCL calculation 58 ml/min; Estimated Glomerular Filt Rate 59; Glucose 189 mg/dL (65-110); Potassium 3.2 mmol/L (3.4-5.0); Sodium 137 mmol/L (137-145)
[2022-12-30] MEDS: hydroCHLOROthiazide 25 MG TABLET PO (08:15)
[2022-12-30] MEDS: metFORMIN HCL 500 MG TABLET PO ×2 (08:15→16:57)
[2022-12-30] MEDS: amLODIPine BESYLATE 5 MG TABLET 10 MG PO (08:15)
[2022-12-30] MEDS: VALSARTAN 160 MG TABLET 320 MG PO (08:15)
[2022-12-30] MEDS: SIMVASTATIN 20 MG TABLET PO (08:16)
[2022-12-30] MEDS: FUROSEMIDE INJ 40 MG/4 ML VIAL IV PUSH ×2 (08:16→21:07)
[2022-12-30] MEDS: TERAZOSIN HCL 1 MG CAPSULE 2 MG PO (08:16)
[2022-12-30] MEDS: DEXAMETHASONE 4 MG TABLET PO (08:17)
[2022-12-30] MEDS: carvediloL 25 MG TABLET PO ×2 (08:17→21:07)
[2022-12-30 08:30] LABS: Glucose Point of Care 193 mg/dl (65-105)
--- NOTE | 2022-12-30 11:14 | PM.PNCARD ---
Progress Note: A&P Assessment and Plan (1) Acute heart failure with preserved ejection fraction: Code(s): I50.31 - Acute diastolic (congestive) heart failure Status: Acute Assessment and Plan: Acute on chronic heart failure with preserved ejection fraction improving with IV diuresis.? Patient is also COVID positive.? Patient hypertensive on presentation.? Continue home antihypertensive regimen.? Monitor renal function electrolytes closely.? Accurate input and output, daily weight.? Apnea link overnight the patient is more fully recovered prior to discharge to screen for HALLE.? Adequate BP control.? Continue IV Lasix, monitor renal function electrolytes closely. (2) Troponin level elevated: Code(s): R77.8 - Other specified abnormalities of plasma proteins Status: Acute Assessment and Plan: Slight troponin elevation in the setting of acute severe hypoxic respiratory failure, decompensated heart failure preserved ejection fraction most likely type 2 infarction not secondary to acute coronary syndrome and/or plaque rupture.? Initial ECG with nonspecific ST abnormality, repeat ECG., aspirin 81 mg daily for now.? Outpatient ischemic evaluation reasonable given repeat admission for decompensated heart failure to exclude underlying CAD as contribution.? Patient is not reporting anginal symptoms prior to admission, however, but has multiple risk factors. (3) Pulmonary hypertension: Code(s): I27.20 - Pulmonary hypertension, unspecified Status: Acute Assessment and Plan: Severe, RVSP 67 mm Hg.? Etiology remains unclear likely multifactorial.? Cannot exclude left-sided heart disease.? Workup as an outpatient anticipated and is particularly concerning given patient's prior to reported history of recurrent unexplained syncope.? No recurrence prior to this admission. Apnea link prior to discharge to screen for HALLE. (4) Hypertension associated with diabetes: Code(s): E11.59 - Type 2 diabetes mellitus with other circulatory complications; I15.2 - Hypertension secondary to endocrine disorders Status: Acute Assessment and Plan: BP elevated.? Continue antihypertensives as above with carvedilol 25 mg twice daily, amlodipine 10 mg daily, terazosin 2 mg daily, valsartan 320 mg daily.? Will switch HCTZ to Spironolactone. (5) COVID-19: Code(s): U07.1 - COVID-19 Status: Acute Assessment and Plan: Remains in isolation.? Management per primary service.? Dexamethasone has been ordered. (6) Hyperlipidemia associated with type 2 diabetes mellitus: Code(s): E11.69 - Type 2 diabetes mellitus with other specified complication; E78.5 - Hyperlipidemia, unspecified Status: Acute Assessment and Plan: Reduce simvastatin to 20 mg daily given interaction with amlodipine and or alternative statin would be preferred if lipids poorly controlled LDL 70, 10/30/2022. Subjective Date/time seen: 12/30/22 11:14 Interval history: Reason for visit: Decompensated heart failure HPI: Patient is a very pleasant 77-year-old male with past medical history significant for severe pulmonary hypertension, longstanding hypertension, type 2 diabetes mellitus, hyperlipidemia, [id number] mitral regurgitation, history of unexplained syncope was admitted earlier this month with uncontrolled hypertension, shortness of breath and diuresed due to lower extremity edema and abdominal distension.? Patient states he believes lower extremity edema was more prominent after increasing amlodipine to 10 mg daily notes he became more acutely short of breath day prior to presentation and into the evening and had noted a more abrupt increase in lower extremity edema and abdominal distension.? He denies chest pain, hemoptysis, fevers, chills palpitations.? Per EMS records he was found to be severely hypoxic 54% on room air improved with CPAP and O2 supplementation.? He was diuresed and is now feeling much bet
[2022-12-30 11:54] LABS: Glucose Point of Care 201 mg/dl (65-105)
[2022-12-30] MEDS: POTASSIUM CHLORIDE 20 MEQ TABLET 40 MEQ PO (11:59)
[2022-12-30 16:34] LABS: Glucose Point of Care 303 mg/dl (65-105)
[2022-12-30] MEDS: INSULIN ASPART (*BKC) 100 UNITS/ML SUB-Q (16:57)
--- NOTE | 2022-12-30 17:12 | PM.IMPN ---
Progress Note: A&P Assessment and Plan (1) Hyperlipidemia: Code(s): E78.5 - Hyperlipidemia, unspecified Status: Acute Assessment and Plan: Continue home medications (2) Type 2 diabetes mellitus: Code(s): E11.9 - Type 2 diabetes mellitus without complications Status: Acute Assessment and Plan: Continue home medications and monitor blood sugar in the hospital. Sliding scale insulin as needed (3) Essential (primary) hypertension: Code(s): I10 - Essential (primary) hypertension Status: Acute Assessment and Plan: Monitor blood pressure and continue home meds (4) CHF (congestive heart failure): Code(s): I50.9 - Heart failure, unspecified Status: Acute Assessment and Plan: Resume home medications and cardiac medications. Continue Lasix IV. Echo reviewed, he does have significant diastolic dysfunction along with elevated pulmonary artery pressure. Appreciate cardiology input. Will need evaluation pressures for sleep apnea. Will add D-dimer Venous duplex negative 12/30/2022 interval history: patient is 77-year-old male presented with complaint of shortness of breath patient is found to have a COVID-19 also patient also has a history severe pulmonary hypertension and grade 2 diastolic dysfunction with preserved LV function, most likely patient has acute on chronic diastolic congestive heart failure, upon arrival patient was hypoxic at room air placed on BiPAP and was diuresed and started on dexamethasone for COVID, patient has elevated D-dimer lower extremity Doppler negative for DVT will start the patient on therapeutic Lovenox and do the CTA of the chest to rule out pulmonary emboli, will continue to monitor once clinically stable will have PT OT evaluate the patient. (5) Pneumonia: Code(s): J18.9 - Pneumonia, unspecified organism Status: Acute Assessment and Plan: IV antibiotics COVID positive, dexamethasone Think most shortness of breath is likely related to volume overloaded and cardiac etiology. (6) Acute kidney injury: Code(s): N17.9 - Acute kidney failure, unspecified Status: Acute Assessment and Plan: Baseline creatinine 1.2. Creatinine days 1.4. This is secondary to diuresis. Monitor Subjective Date/time seen: 12/30/22 17:12 12/30/2022 interval history: patient is 77-year-old male presented with complaint of shortness of breath patient is found to have a COVID-19 also patient also has a history severe pulmonary hypertension and grade 2 diastolic dysfunction with preserved LV function, most likely patient has acute on chronic diastolic congestive heart failure, upon arrival patient was hypoxic at room air placed on BiPAP and was diuresed and started on dexamethasone for COVID, patient has elevated D-dimer lower extremity Doppler negative for DVT will start the patient on therapeutic Lovenox and do the CTA of the chest to rule out pulmonary emboli, will continue to monitor once clinically stable will have PT OT evaluate the patient. Review of Systems Review of Systems: 8 point ROS obtained. Negative, unless stated in HPI. Exam Narrative: morbidly obese Patient is comfortable, NAD HEENT: eyes are clear and none icteric LUNGS: normal respiratory effort ABD: distended Lower extremities: no edema SKIN: nonjaundiced Neuro: grossly intact. Objective Data Vital Signs Vital Signs: Vital Signs - 24 hr 12/29/22 18:00 12/29/22 20:00 12/29/22 21:04 Temperature 98 F Pulse Rate 54 L 63 65 Respiratory Rate 20 Blood Pressure 188/61 H Pulse Oximetry 97 Oxygen Delivery Oxygen Flow Rate Fraction of Inspired Oxygen 12/29/22 20:00 12/29/22 22:44 12/29/22 20:00 Temperature Pulse Rate 55 L 64 Respiratory Rate 20 19 Blood Pressure Pulse Oximetry 97 96 Oxygen Delivery Nasal Cannula Nasal Cannula Oxygen Flow Rate 2 2 Fraction of Inspired Oxygen 36 12/29/22 22:00 03/0
[2022-12-30] MEDS: ENOXAPARIN 100 MG/ML SYRINGE SUB-Q (18:03)
[2022-12-30 20:19] LABS: Glucose Point of Care 198 mg/dl (65-105)
[2022-12-31] VITALS (8 sets, daily range): BP systolic 127–186; BP diastolic 67–86; PULSE 46–89; RESP 12–18; TEMP 36.4–36.5; O2SAT 95–97
[2022-12-31 05:01] LABS: Hematocrit 38.6 % (42.0-52.0); Hemoglobin 12.7 g/dL (14.0-18.0); Mean Corpuscular HGB Conc 32.9 g/dl (32-36); Mean Corpuscular Hemoglobin 30.8 pg (26-34); Mean Corpuscular Volume 93.7 fl (80-100); Mean Platelet Volume 10.8 fl (7.4-10.4); Platelet Count Result 218 k/mm3 (150-375); Red Blood Count 4.12 M/mm3 (4.6-6.20); Red Cell Distribution Width 12.3 % (11.5-14.5); White Blood Count 5.9 K/mm3 (4.5-10.0)
[2022-12-31 05:25] LABS: Anion Gap 9 mmol/L (8-16); Blood Urea Nitrogen 34 mg/dL (9-20); Calcium 8.5 mg/dL (8.4-10.2); Carbon Dioxide 32 mmol/L (22-30); Chloride 94 mmol/L (98-107); Estimated CRCL calculation 50 ml/min; Estimated Glomerular Filt Rate 49; Glucose 160 mg/dL (65-110); Magnesium 1.9 mg/dL (1.6-2.3); Potassium 2.9 mmol/L (3.4-5.0); Sodium 135 mmol/L (137-145)
[2022-12-31] MEDS: ENOXAPARIN 100 MG/ML SYRINGE SUB-Q (06:08)
[2022-12-31] MEDS: POTASSIUM CHLORIDE 20 MEQ PACKET (FOR LIQUID) 40 MEQ PO (06:08)
[2022-12-31 08:04] LABS: Glucose Point of Care 138 mg/dl (65-105)
[2022-12-31] MEDS: amLODIPine BESYLATE 5 MG TABLET 10 MG PO (08:52)
[2022-12-31] MEDS: carvediloL 25 MG TABLET PO (08:52)
[2022-12-31] MEDS: DEXAMETHASONE 4 MG TABLET PO (08:52)
[2022-12-31] MEDS: SIMVASTATIN 20 MG TABLET PO (08:53)
[2022-12-31] MEDS: metFORMIN HCL 500 MG TABLET PO (08:53)
[2022-12-31] MEDS: VALSARTAN 160 MG TABLET 320 MG PO (08:53)
[2022-12-31] MEDS: TERAZOSIN HCL 1 MG CAPSULE 2 MG PO (08:53)
[2022-12-31] MEDS: SPIRONOLACTONE 25 MG TABLET PO (08:53)
[2022-12-31] MEDS: FUROSEMIDE INJ 40 MG/4 ML VIAL IV PUSH (08:53)
--- NOTE | 2022-12-31 11:09 | PM.PNCARD ---
Progress Note: A&P Assessment and Plan (1) Acute heart failure with preserved ejection fraction: Code(s): I50.31 - Acute diastolic (congestive) heart failure Status: Acute Assessment and Plan: Acute on chronic heart failure with preserved ejection fraction improved with IV diuresis.? Patient is also COVID positive.? Patient hypertensive on presentation.? Continue home antihypertensive regimen.? Monitor renal function electrolytes closely.? Accurate input and output, daily weight.? Apnea link overnight the patient is more fully recovered prior to discharge to screen for HALLE.? Adequate BP control. Will switch IV Lasix to PO. Already got IV Lasix this AM, so PO Lasix to start tomorrow. K is 2.9 this AM. Given potassium replacement. Repeat BMP this afternoon. (2) Troponin level elevated: Code(s): R77.8 - Other specified abnormalities of plasma proteins Status: Acute Assessment and Plan: Slight troponin elevation in the setting of acute severe hypoxic respiratory failure, decompensated heart failure preserved ejection fraction most likely type 2 infarction not secondary to acute coronary syndrome and/or plaque rupture.? Initial ECG with nonspecific ST abnormality, repeat ECG., aspirin 81 mg daily for now.? Outpatient ischemic evaluation reasonable given repeat admission for decompensated heart failure to exclude underlying CAD as contribution.? Patient is not reporting anginal symptoms prior to admission, however, but has multiple risk factors. (3) Pulmonary hypertension: Code(s): I27.20 - Pulmonary hypertension, unspecified Status: Acute Assessment and Plan: Severe, RVSP 67 mm Hg.? Etiology remains unclear likely multifactorial.? Cannot exclude left-sided heart disease.? Workup as an outpatient anticipated and is particularly concerning given patient's prior to reported history of recurrent unexplained syncope.? No recurrence prior to this admission. Apnea link prior to discharge to screen for HALLE. (4) Hypertension associated with diabetes: Code(s): E11.59 - Type 2 diabetes mellitus with other circulatory complications; I15.2 - Hypertension secondary to endocrine disorders Status: Acute Assessment and Plan: BP elevated.? Continue antihypertensives as above with carvedilol 25 mg twice daily, amlodipine 10 mg daily, terazosin 2 mg daily, valsartan 320 mg daily.? Will switch HCTZ to Spironolactone. Spironolactone started 12/31. Upon discharge, would not continue HCTZ and provide prescription for Spironolactone instead. (5) COVID-19: Code(s): U07.1 - COVID-19 Status: Acute Assessment and Plan: Remains in isolation.? Management per primary service.? Dexamethasone has been ordered. (6) Hyperlipidemia associated with type 2 diabetes mellitus: Code(s): E11.69 - Type 2 diabetes mellitus with other specified complication; E78.5 - Hyperlipidemia, unspecified Status: Acute Assessment and Plan: Reduce simvastatin to 20 mg daily given interaction with amlodipine and or alternative statin would be preferred if lipids poorly controlled LDL 70, 10/30/2022. Subjective Date/time seen: 12/31/22 11:09 Interval history: Reason for visit: Decompensated heart failure HPI: Patient is a very pleasant 77-year-old male with past medical history significant for severe pulmonary hypertension, longstanding hypertension, type 2 diabetes mellitus, hyperlipidemia, [id number] mitral regurgitation, history of unexplained syncope was admitted earlier this month with uncontrolled hypertension, shortness of breath and diuresed due to lower extremity edema and abdominal distension.? Patient states he believes lower extremity edema was more prominent after increasing amlodipine to 10 mg daily notes he became more acutely short of breath day prior to presentation and into the evening and had noted a more abrupt increase in lower extremity edema and abdominal dist
[2022-12-31 12:01] LABS: Glucose Point of Care 192 mg/dl (65-105)
[2022-12-31 14:55] LABS: Anion Gap 13 mmol/L (8-16); Blood Urea Nitrogen 43 mg/dL (9-20); Carbon Dioxide 29 mmol/L (22-30); Chloride 90 mmol/L (98-107); Estimated CRCL calculation 41 ml/min; Estimated Glomerular Filt Rate 39; Glucose 186 mg/dL (65-110); Potassium 4.1 mmol/L (3.4-5.0); Sodium 132 mmol/L (137-145)
--- NOTE | 2022-12-31 15:44 | PM.DS ---
DS: Admitting Diagnosis Discharge Date 12/31/2022 Admitting Diagnosis shortness of breath COVID positive DS: Discharge Diagnosis Discharge Diagnosis (1) Hyperlipidemia: Code(s): E78.5 - Hyperlipidemia, unspecified Status: Acute Assessment and Plan: Continue home medications (2) Type 2 diabetes mellitus: Code(s): E11.9 - Type 2 diabetes mellitus without complications Status: Acute Assessment and Plan: Continue home medications and monitor blood sugar in the hospital. Sliding scale insulin as needed (3) Essential (primary) hypertension: Code(s): I10 - Essential (primary) hypertension Status: Acute Assessment and Plan: Monitor blood pressure and continue home meds (4) CHF (congestive heart failure): Code(s): I50.9 - Heart failure, unspecified Status: Acute Assessment and Plan: Resume home medications and cardiac medications. Continue Lasix IV. Echo reviewed, he does have significant diastolic dysfunction along with elevated pulmonary artery pressure. Appreciate cardiology input. Will need evaluation pressures for sleep apnea. Will add D-dimer Venous duplex negative 12/30/2022 interval history: patient is 77-year-old male presented with complaint of shortness of breath patient is found to have a COVID-19 also patient also has a history severe pulmonary hypertension and grade 2 diastolic dysfunction with preserved LV function, most likely patient has acute on chronic diastolic congestive heart failure, upon arrival patient was hypoxic at room air placed on BiPAP and was diuresed and started on dexamethasone for COVID, patient has elevated D-dimer lower extremity Doppler negative for DVT will start the patient on therapeutic Lovenox and do the CTA of the chest to rule out pulmonary emboli, will continue to monitor once clinically stable will have PT OT evaluate the patient. (5) Pneumonia: Code(s): J18.9 - Pneumonia, unspecified organism Status: Acute Assessment and Plan: IV antibiotics COVID positive, dexamethasone Think most shortness of breath is likely related to volume overloaded and cardiac etiology. (6) Acute kidney injury: Code(s): N17.9 - Acute kidney failure, unspecified Status: Acute Assessment and Plan: Baseline creatinine 1.2. Creatinine days 1.4. This is secondary to diuresis. Monitor DS: Summary Hospital Course Reason for hospitalization: Chief Complaint: Patient is a 77-year-old gentleman who presents the emergency department with chief complaint of shortness of breath.? Patient reports that yesterday he started having shortness of breath EMS was called he was found to be hypoxic patient was started on CPAP prior to arrival patient was recently admitted for a CHF exacerbation and pneumonia Hospital Course: ?patient is 77-year-old male presented with complaint of shortness of breath patient is found to have a COVID-19 also patient also has a history severe pulmonary hypertension and grade 2 diastolic? dysfunction with preserved LV function, most likely patient has acute on chronic diastolic congestive heart failure,? upon arrival patient was hypoxic at room air placed on BiPAP and was diuresed and? started on dexamethasone for COVID, patient has elevated D-dimer lower extremity Doppler negative for DVT will start the patient on therapeutic Lovenox and do the CTA of the chest to rule out pulmonary emboli, will continue to monitor once clinically stable will have PT OT evaluate the patient. patient remains clinically stable requiring any oxygen and ambulating in the room without difficulty, seen by cardiology patient can be discharged, Time Spent with Patient Time attestation: Total time spent providing and/or coordinating discharge services: Exam Narrative: morbidly obese Patient is comfortable, NAD HEENT: eyes are clear and none icteric LUNGS: normal respiratory effort ABD: distended Lower extr
== END 2022-12-31 16:21 | disposition home or self-care (01) | DRG 177 ==
LOC: ANHED 08:06 → ANHIMU 09:00
PROVIDERS: Emergency Medicine; Internal Medicine; Admitting Provider Chiropractor; Emergency Provider Preventive Medicine Aerospace Medicine; PCP Internal Medicine; Visit Provider Family Medicine
DX: U07.1 COVID-19 (principal); I50.33 Acute on chronic diastolic (congestive) heart failure; J12.82 Pneumonia due to coronavirus disease 2019; N17.9 Acute kidney failure, unspecified; I11.0 Hypertensive heart disease with heart failure; D47.2 Monoclonal gammopathy; E78.5 Hyperlipidemia, unspecified; E11.59 Type 2 diabetes mellitus with other circulatory complications; I27.20 Pulmonary hypertension, unspecified; I34.0 Nonrheumatic mitral (valve) insufficiency; I15.2 Hypertension secondary to endocrine disorders; M17.12 Unilateral primary osteoarthritis, left knee; R09.02 Hypoxemia; Z79.84 Long term (current) use of oral hypoglycemic drugs
CPT/HCPCS: 36415; 36600; 71045; 71275; 80048; 80053; 81001; 82805; 82948; 83605; 83735; 83880; 84145; 84484; 85025; 85027; 85380; 85610; 85730; 87040; 87637; 93005; 94002; 96374; 96375; 99285; A9270; G0378; J0131; J1650; J1815; J1940; J1956; J8540; Q9967

== ENCOUNTER 2024-02-22 00:27 | Day surgery (SDC) | payer MEDICARE, SELFPAY ==
[2024-02-10 10:11] VITALS: BMI 31.2
[2024-02-22 06:45] VITALS: BP 154/60; PULSE 53; RESP 18; TEMP 36.2; O2SAT 98
[2024-02-22] MEDS: LACTATED RINGERS 1,000 ML 150 ML IV CONT (06:57)
[2024-02-22 07:01] LABS: Glucose Point of Care 159 mg/dl (65-105)
--- NOTE | 2024-02-22 07:34 | WPDANESEPPF ---
Anes - Initial Pre Proc Eval Procedure: Operation Date: 02/22/24 08:00 Proposed Procedures p Colonoscopy - Vasquez Guerin MD Date/Time: 02/22/24 07:34 Surgeon: Vasquez Guerin MD Pre Op Diagnosis: hx colon polyps Patient Data Age: 78 Gender: M Height: 1.83 m Weight: 101.1 kg Last Vital Signs Temp 97.2 F L 02/22/24 06:45 Pulse 53 L 02/22/24 06:45 Resp 18 02/22/24 06:45 BP 154/60 H 02/22/24 06:45 Pulse Ox 98 02/22/24 06:45 O2 Del Method Room Air 02/22/24 06:45 Allergies Allergy/AdvReac Type Severity Reaction Status Date / Time No Known Allergies Allergy Mild Verified 02/22/24 06:44 Home Medications Medication Instructions Recorded Confirmed Type blood-glucose meter #1 ea 09/12/20 02/10/24 Rx lancets 33 gauge (BD Ultra Fine #300 ea 10/23/21 02/10/24 Rx Lancets) blood sugar diagnostic (Blood #300 ea 01/04/23 02/10/24 Rx Glucose Test strips) furosemide 40 mg tablet 40 mg PO DAILY #90 tabs 02/05/23 02/10/24 Rx carvedilol 25 mg tablet (Coreg) 25 mg PO Q12H #180 tabs 04/21/23 02/10/24 Rx metformin 500 mg tablet 500 mg PO BID #180 tabs 10/24/23 02/10/24 Rx amlodipine 10 mg tablet 10 mg PO DAILY #90 tabs 10/28/23 02/10/24 Rx atorvastatin 40 mg tablet 40 mg PO DAILY 11/17/23 02/10/24 History valsartan 320 1 tablet PO DAILY #90 tabs 11/29/23 02/22/24 Rx mg-hydrochlorothiazide 25 mg tablet terazosin 2 mg capsule 2 mg PO DAILY #90 caps 12/24/23 02/10/24 Rx Laboratory Tests 02/22/24 06:55 POC Capillary Glucose 159 H mg/dl (65-105) Patient hx anesthesia problems: none Family hx anesthesia problems: none Results Review: All pre-operative results and documents have been reviewed as part of the pre-operative evaluation. 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 Nephropathy Primary osteoarthritis of left knee Pulmonary edema Pulmonary hypertension Pulmonary nodule Tremor of right hand Troponin level elevated Type 2 diabetes mellitus Surgical History Surgical History No pertinent past surgical history Family History Family History Father Family history of Alzheimer's disease Other Cerebrovascular accident Family history of arthritis Hypertension Social History Social History Social History: Surrogate medical decision maker: Hansa Mark, spouse. Code status: Full code. Smoking status: Never smoker Second hand tobacco smoke exposure: No Alcohol intake: current Drinks per week: 2 Alcohol use details: Social alcohol use in moderation. Substance use: never Substance use type: does not use Lack of Transportation: No Lack of Food: Never True Current Housing: I Have Housing Concerned About Future Housing: No Difficulty Paying Gas/Electric Bills: No Difficulty Paying for Meds: No Currently Unemployed: No Education: Associate Degree Difficulty w/ Childcare or Family Care: No Living arrangements: with family Additional living arrangements comments: Lives with spouse in [place]. 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 Spiritual care concerns: No Anes - Eval Final PreProcedure Day of Procedure 02/22/24 07:34 Patient weight: obese Heart: regular rate and rhythm Lungs: clear to auscultation Airway: Mallampati scale class III Fátima
--- NOTE | 2024-02-22 07:48 | PM.HPGS ---
History of Present Illness History of Present Illness Consent: Risks, benefits, and alternatives have been discussed and questions answered. Patient agrees to proceed with procedure. Chief complaint: hx colon polyps Narrative: Chepe Mark is a 78 year old male with colon polyp 2020 and had suboptimal prep Review of Systems Review of Systems: All systems reviewed & are unremarkable except as noted in HPI and below PMFSH Past Medical History Medical History (Updated 02/22/24 @ 07:49 by Vasquez Guerin MD) Acute heart failure with preserved ejection fraction CHF (congestive heart failure) Colon polyp Essential (primary) hypertension Hyperglycemia Hyperlipidemia Hyperlipidemia associated with type 2 diabetes mellitus Hypertension associated with diabetes Hypokalemia Hyponatremia 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 Nephropathy Primary osteoarthritis of left knee Pulmonary edema Pulmonary hypertension Pulmonary nodule Tremor of right hand Troponin level elevated Type 2 diabetes mellitus Surgical History Surgical History No pertinent past surgical history Family History Family History Father Family history of Alzheimer's disease Other Cerebrovascular accident Family history of arthritis Hypertension Social History Social History Social History: Surrogate medical decision maker: Hansa Mark, spouse. Code status: Full code. Smoking status: Never smoker Second hand tobacco smoke exposure: No Alcohol intake: current Drinks per week: 2 Alcohol use details: Social alcohol use in moderation. Substance use: never Substance use type: does not use Lack of Transportation: No Lack of Food: Never True Current Housing: I Have Housing Concerned About Future Housing: No Difficulty Paying Gas/Electric Bills: No Difficulty Paying for Meds: No Currently Unemployed: No Education: Associate Degree Difficulty w/ Childcare or Family Care: No Living arrangements: with family Additional living arrangements comments: Lives with spouse in [place]. 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 Spiritual care concerns: No Meds Home Medications and Allergies Home Medications Medication Instructions Recorded Confirmed Type blood-glucose meter #1 ea 09/12/20 02/10/24 Rx lancets 33 gauge (BD Ultra Fine #300 ea 10/23/21 02/10/24 Rx Lancets) blood sugar diagnostic (Blood #300 ea 01/04/23 02/10/24 Rx Glucose Test strips) furosemide 40 mg tablet 40 mg PO DAILY #90 tabs 02/05/23 02/10/24 Rx carvedilol 25 mg tablet (Coreg) 25 mg PO Q12H #180 tabs 04/21/23 02/10/24 Rx metformin 500 mg tablet 500 mg PO BID #180 tabs 10/24/23 02/10/24 Rx amlodipine 10 mg tablet 10 mg PO DAILY #90 tabs 10/28/23 02/10/24 Rx atorvastatin 40 mg tablet 40 mg PO DAILY 11/17/23 02/10/24 History valsartan 320 1 tablet PO DAILY #90 tabs 11/29/23 02/22/24 Rx mg-hydrochlorothiazide 25 mg tablet terazosin 2 mg capsule 2 mg PO DAILY #90 caps 12/24/23 02/10/24 Rx Allergies Allergy/AdvReac Type Severity Reaction Status Date / Time No Known Allergies Allergy Mild Verified 02/22/24 06:44 Vital Signs Vital Signs - 24 hr 02/22/24 06:45 Temperature 97.2 F L Pulse Rate 53 L Respiratory Rate 18 Blood Pressure 154/60 H Pulse Oximetry 98 Oxygen Delivery Room Air Exam Const: General: comfortable and no acute distress HENMT: Face/Nose/Sinus: Normal nares present Eyes: General: appearance normal, both eyes and all related structures Neck: Neck: no JVD Resp: Auscultation: clear to auscultation bilaterally Cardio: Rate: regular rate Rhythm: regular rhythm GI: Inspection: non-
[2024-02-22 08:10] VITALS: BP 130/55; PULSE 45; RESP 18; O2SAT 99
[2024-02-22 08:20] VITALS: BP 127/53; PULSE 44; RESP 18; O2SAT 99
[2024-02-22 08:30] VITALS: BP 139/54; PULSE 45; RESP 18; O2SAT 99
== END 2024-02-22 08:35 | disposition home or self-care (01) ==
PROVIDERS: PCP Physician Assistant; Visit Provider Internal Medicine Gastroenterology
PROC: 0DJD8ZZ Inspection of Lower Intestinal Tract, Via Natural or Artificial Opening Endoscopic (ICD-10-PCS; CPT 45378; principal; 2024-02-22 08:00)
DX: Z12.11 Encounter for screening for malignant neoplasm of colon (principal); D12.5 Benign neoplasm of sigmoid colon; K63.5 Polyp of colon; K64.8 Other hemorrhoids; E78.5 Hyperlipidemia, unspecified; E11.9 Type 2 diabetes mellitus without complications; I11.0 Hypertensive heart disease with heart failure; I50.21 Acute systolic (congestive) heart failure; E87.6 Hypokalemia; E87.1 Hypo-osmolality and hyponatremia; E66.9 Obesity, unspecified; Z68.30 Body mass index [BMI] 30.0-30.9, adult; Z79.84 Long term (current) use of oral hypoglycemic drugs; Z82.49 Family history of ischemic heart disease and other diseases of the circulatory system
CPT/HCPCS: 45385; 82948; 88305; J2704; J7120